=== PATIENT | female | born 1955 | race African-American/Black ===

== ENCOUNTER 2018-07-19 09:58 | Observation (INO) ==
[~2018-07-19 09:58] MED LIST: ACETAMINOPHEN 325 MG TABLET PO PRN; BISACODYL 5 MG TABLET PO PRN; DOCUSATE SODIUM 100 MG CAPSULE PO PRN; MAGNESIUM SULF RIDER 2 GM in PREMIX 1 EACH IV PRN; MAGNESIUM SULF RIDER 4 GM in PREMIX 1 EACH IV PRN; ONDANSETRON 4 MG/2 ML VIAL IV PRN; POTASSIUM CHLORIDE 20 MEQ TABLET PO PRN; ZALEPLON 5 MG CAPSULE PO PRN; diphenhydrAMINE CAP 25 MG CAPSULE PO PRN; guaiFENesin/DM ER 600-30 MG TABLET PO PRN
[2018-07-19 11:27] LABS: Basophils % 0.7 % (0.0-0.8); Eosinophils # 0.2 10*3/uL (0.0-0.87); Eosinophils % 4.4 % (0.00-10.9); Hematocrit 32.1 VOL% (35.7-47.0); Hemoglobin 10.1 GM/DL (12.0-16.0); Immature Granulocytes % 0.9 %; Immature Granulocytes Absolute 0.04 #; Lymphocytes # 1.2 10*3/uL (1.4-4.0); Lymphocytes % 27.7 % (21.3-54.2); Mean Corpuscular HGB Conc 31.5 GM/DL (32-36); Mean Corpuscular Hemoglobin 29 PG (27-34); Mean Corpuscular Volume 93.3 FL (87-102); Mean Platelet Volume 9.7 FL (9.6-12.0); Monocytes # 0.5 10*3/uL (0.11-0.8); Monocytes % 11.6 % (1.7-12.7); Neutrophils # 2.4 10*3/uL (1.4-7.4); Neutrophils % 54.7 % (38.7-73.9); Platelet Count 234 T/CUMM (130-400); Red Blood Count 3.44 MC/CUMM (3.8-5.5); Red Cell Distribution Width 14.5 % (9.3-17.3); White Blood Count 4.3 T/CUMM (4-12)
[2018-07-19] MEDS ORDERED: TOBRAMYCIN/DEXAMETHASONE OPH OINT 3.5 GM TUBE BOTH EYES PRN (11:36)
[2018-07-19] MEDS ORDERED: NON-FORMULARY MEDICATION (Chlorpheniramine/Phenylephrine [Ed-A-Hist 4 Mg-10 Mg Tablet] 1 E PO PRN (11:36)
[2018-07-19 11:38] LABS: INR 1.1; PT Patient Result 11.6 SECS
[2018-07-19] MEDS ORDERED: ENOXAPARIN 40 MG/0.4 ML SYRINGE SUBCUT SCH (12:00)
[2018-07-19 12:01] LABS: Albumin 3.6 G/DL (3.4-5.0); Bilirubin,Total 0.4 MG/DL (0.2-1.0); Calcium 8.7 MG/DL (8.5-10.1); Osmolality,Calculated 289.4 MOS/KG (273-304); Potassium 3.7 MMOL/L (3.5-5.1); Total Protein 7.6 G/DL (6.4-8.3)
[2018-07-19] MEDS: DEXTROSE 5% NACL 0.45% 1,000 ML IV SCH (14:44)
[2018-07-19] MEDS: PANTOPRAZOLE 40 MG TABLET PO SCH (14:45)
[2018-07-19] MEDS: FUROSEMIDE 20 MG TABLET PO SCH (16:39)
[2018-07-19] MEDS ORDERED: methylPREDNISolone 4 MG TABLET PO ONE (18:00)
[2018-07-20] MEDS: DEXTROSE 5% NACL 0.45% 1,000 ML IV SCH ×2 (01:01→04:45)
[2018-07-20 04:55] LABS: Eosinophils % 0.6 % (0.00-10.9); Lymphocytes # 0.6 10*3/uL (1.4-4.0)
[2018-07-20 05:08] LABS: Basophils % 0.6 % (0.0-0.8); Hematocrit 28.3 VOL% (35.7-47.0); Hemoglobin 9.5 GM/DL (12.0-16.0); Immature Granulocytes % 1.6 %; Immature Granulocytes Absolute 0.05 #; Lymphocytes % 19.8 % (21.3-54.2); Mean Corpuscular HGB Conc 33.6 GM/DL (32-36); Mean Corpuscular Hemoglobin 30 PG (27-34); Mean Corpuscular Volume 90.1 FL (87-102); Mean Platelet Volume 10.6 FL (9.6-12.0); Monocytes # 0.1 10*3/uL (0.11-0.8); Monocytes % 3.8 % (1.7-12.7); Neutrophils # 2.3 10*3/uL (1.4-7.4); Neutrophils % 73.6 % (38.7-73.9); Platelet Count 189 T/CUMM (130-400); Red Blood Count 3.14 MC/CUMM (3.8-5.5); Red Cell Distribution Width 14.1 % (9.3-17.3); White Blood Count 3.1 T/CUMM (4-12)
[2018-07-20 05:41] LABS: Calcium 8.3 MG/DL (8.5-10.1); Osmolality,Calculated 289.5 MOS/KG (273-304); Potassium 4.3 MMOL/L (3.5-5.1)
[2018-07-20] MEDS: LEVOTHYROXINE 25 MCG TABLET PO SCH (06:52)
[2018-07-20] MEDS ORDERED: diphenhydrAMINE CAP 25 MG CAPSULE PO ONE (08:00)
[2018-07-20] MEDS ORDERED: methylPREDNISolone 4 MG TABLET PO SCH ×2 (08:00→10:00)
[2018-07-20] MEDS ORDERED: DIAZEPAM 5 MG TABLET PO ONE (08:00)
[2018-07-20] MEDS ORDERED: LISINOPRIL 10 MG TABLET PO SCH (09:00)
[2018-07-20] MEDS: MEGESTROL 40 MG TABLET PO SCH (09:40)
[2018-07-20] MEDS: FUROSEMIDE 20 MG TABLET PO SCH ×2 (09:40→19:00)
[2018-07-20] MEDS: ASPIRIN EC 81 MG TABLET PO SCH (09:41)
[2018-07-20] MEDS: PANTOPRAZOLE 40 MG TABLET PO SCH (09:41)
[2018-07-20] MEDS: CHOLECALCIFEROL 1,000 UNIT TABLET PO SCH (09:41)
[2018-07-20] MEDS: FENOFIBRATE 160 MG TABLET PO SCH (09:41)
[2018-07-20] MEDS: CETIRIZINE 10 MG TABLET PO SCH (09:41)
[2018-07-20] MEDS: FERROUS SULFATE 325 MG TABLET PO SCH (09:41)
[2018-07-20] MEDS: CARVEDILOL 3.125 MG TABLET PO SCH (09:41)
[2018-07-20] MEDS ORDERED: methylPREDNISolone SOD SUC 125 MG/2 ML VIAL IV ONE (12:57)
[2018-07-20] MEDS ORDERED: HEPARIN/NACL 0.9% 2 UNITS/ML 1,000 ML IV ONE (13:14)
[2018-07-20] MEDS: DIGOXIN 0.125 MG TABLET PO SCH (13:17)
[2018-07-20] MEDS: ENOXAPARIN 30 MG/0.3 ML SYRINGE SUBCUT SCH (13:28)
[2018-07-20] MEDS ORDERED: LIDOCAINE 1%/EPI INJ 20 ML VIAL ONE (14:05)
[2018-07-20] MEDS ORDERED: PROPOFOL 200 MG/20 ML VIAL IV ONE (15:09)
[2018-07-20] MEDS ORDERED: MIDAZOLAM 2 MG/2 ML VIAL ONE (15:10)
[2018-07-20] MEDS ORDERED: fentaNYL 100 MCG/2 ML VIAL ONE (15:10)
[2018-07-20] MEDS: SODIUM CHLORIDE 0.45% 1,000 ML IV SCH (19:00)
[2018-07-21] MEDS: DEXTROSE 5% NACL 0.45% 1,000 ML IV SCH ×3 (00:39→16:12)
[2018-07-21] MEDS: SODIUM CHLORIDE 0.45% 1,000 ML IV SCH ×3 (01:41→21:31)
[2018-07-21 05:00] LABS: Basophils % 0.1 % (0.0-0.8); Hemoglobin 8.3 GM/DL (12.0-16.0); Immature Granulocytes % 0.7 %; Immature Granulocytes Absolute 0.07 #; Lymphocytes # 1.6 10*3/uL (1.4-4.0); Lymphocytes % 15.2 % (21.3-54.2); Mean Corpuscular HGB Conc 31.9 GM/DL (32-36); Mean Corpuscular Hemoglobin 29 PG (27-34); Mean Corpuscular Volume 90.6 FL (87-102); Mean Platelet Volume 11.5 FL (9.6-12.0); Monocytes % 9.7 % (1.7-12.7); Neutrophils # 7.9 10*3/uL (1.4-7.4); Neutrophils % 74.3 % (38.7-73.9); Platelet Count 157 T/CUMM (130-400); Red Blood Count 2.87 MC/CUMM (3.8-5.5); Red Cell Distribution Width 14.1 % (9.3-17.3); White Blood Count 10.7 T/CUMM (4-12)
[2018-07-21 05:37] LABS: Calcium 8.3 MG/DL (8.5-10.1); Osmolality,Calculated 289.3 MOS/KG (273-304); Potassium 3.9 MMOL/L (3.5-5.1)
[2018-07-21 05:52] LABS: Osmolality,Calculated 291.1 MOS/KG (273-304); Potassium 3.9 MMOL/L (3.5-5.1)
[2018-07-21] MEDS: LEVOTHYROXINE 25 MCG TABLET PO SCH (06:51)
[2018-07-21] MEDS: ASPIRIN EC 81 MG TABLET PO SCH (09:10)
[2018-07-21] MEDS: CETIRIZINE 10 MG TABLET PO SCH (09:10)
[2018-07-21] MEDS: FUROSEMIDE 20 MG TABLET PO SCH ×2 (09:10→16:12)
[2018-07-21] MEDS: PANTOPRAZOLE 40 MG TABLET PO SCH (09:10)
[2018-07-21] MEDS: CARVEDILOL 3.125 MG TABLET PO SCH (09:10)
[2018-07-21] MEDS: CHOLECALCIFEROL 1,000 UNIT TABLET PO SCH (09:10)
[2018-07-21] MEDS: FERROUS SULFATE 325 MG TABLET PO SCH (09:10)
[2018-07-21] MEDS: MEGESTROL 40 MG TABLET PO SCH (09:10)
[2018-07-21] MEDS: FENOFIBRATE 160 MG TABLET PO SCH (09:10)
[2018-07-21 12:03] LABS: Apearance,Urine CLEAR (Clear); Bacteria,Urine Moderate /HPF (Few); Bilirubin,Urine Negative (Negative); Blood, Urine Small mg/dL (Negative); Glucose,Urine (UA) Negative (Negative); Ketones,Urine Negative (Negative); Nitrite,Urine Negative (Negative); Protein,Urine Negative; RBC,Urine 4 /HPF (0-4); Squamous Epithelial Cell,Urine Occasional /HPF (0-10); Urine Color Colorless (Yellow); Urine Specific Gravity 1.005 (1.001-1.035); Urine Urobilinogen < 2.0 EU/DL (0.2-1.0); WBC,Urine 1 /HPF (0-6)
[2018-07-21] MEDS: ENOXAPARIN 30 MG/0.3 ML SYRINGE SUBCUT SCH (13:36)
[2018-07-21] MEDS: DIGOXIN 0.125 MG TABLET PO SCH (13:36)
[2018-07-22 02:35] LABS: Basophils % 0.5 % (0.0-0.8); Eosinophils # 0.1 10*3/uL (0.0-0.87); Eosinophils % 1.1 % (0.00-10.9); Hematocrit 27.2 VOL% (35.7-47.0); Immature Granulocytes % 1.1 %; Immature Granulocytes Absolute 0.08 #; Lymphocytes # 2.7 10*3/uL (1.4-4.0); Lymphocytes % 36.2 % (21.3-54.2); Mean Corpuscular HGB Conc 33.1 GM/DL (32-36); Mean Corpuscular Hemoglobin 30 PG (27-34); Mean Corpuscular Volume 89.8 FL (87-102); Mean Platelet Volume 9.7 FL (9.6-12.0); Monocytes # 0.8 10*3/uL (0.11-0.8); Monocytes % 10.4 % (1.7-12.7); Neutrophils # 3.8 10*3/uL (1.4-7.4); Neutrophils % 50.7 % (38.7-73.9); Platelet Count 235 T/CUMM (130-400); Red Blood Count 3.03 MC/CUMM (3.8-5.5); Red Cell Distribution Width 14.1 % (9.3-17.3); White Blood Count 7.6 T/CUMM (4-12)
[2018-07-22 03:16] LABS: Calcium 8.1 MG/DL (8.5-10.1); Osmolality,Calculated 285.3 MOS/KG (273-304); Potassium 3.6 MMOL/L (3.5-5.1)
[2018-07-22] MEDS: DEXTROSE 5% NACL 0.45% 1,000 ML IV SCH (05:57)
[2018-07-22] MEDS: LEVOTHYROXINE 25 MCG TABLET PO SCH ×2 (05:57→06:59)
[2018-07-22] MEDS: SODIUM CHLORIDE 0.45% 1,000 ML IV SCH (06:59)
[2018-07-22 08:24] VITALS: BP 121/58
[2018-07-22] MEDS: CETIRIZINE 10 MG TABLET PO SCH (10:21)
[2018-07-22] MEDS: FENOFIBRATE 160 MG TABLET PO SCH (10:21)
[2018-07-22] MEDS: FERROUS SULFATE 325 MG TABLET PO SCH (10:22)
[2018-07-22] MEDS: PANTOPRAZOLE 40 MG TABLET PO SCH (10:22)
[2018-07-22] MEDS: CHOLECALCIFEROL 1,000 UNIT TABLET PO SCH (10:22)
[2018-07-22] MEDS: CARVEDILOL 3.125 MG TABLET PO SCH (10:22)
[2018-07-22] MEDS: ASPIRIN EC 81 MG TABLET PO SCH (10:22)
[2018-07-22] MEDS: FUROSEMIDE 20 MG TABLET PO SCH (10:22)
[2018-07-22] MEDS: MEGESTROL 40 MG TABLET PO SCH (10:28)
== END 2018-07-22 12:04 | disposition home or self-care (01) ==
LOC: N.2W → N.TELES 12:55 → EDSTATUS 07-20 13:30
PROVIDERS: ADMIT Internal Medicine Interventional Cardiology; ATTEND Internal Medicine Cardiovascular Disease

== ENCOUNTER 2018-08-15 07:30 | Inpatient (IN) ==
[2018-08-22] MEDS ORDERED: CHLORPHENIRAMINE PO PRN (14:26)
[2018-08-22] MEDS ORDERED: PHENYLEPHRINE PO PRN (14:26)
[2018-08-22] MEDS ORDERED: tiZANidine 4 MG TABLET PO PRN (14:26)
[2018-08-22] MEDS ORDERED: PROMETHAZINE 25 MG TABLET PO PRN (14:26)
[2018-08-22] MEDS ORDERED: traMADol 50 MG TABLET PO PRN (14:26)
[2018-08-22] MEDS ORDERED: TOBRAMYCIN/DEXAMETHASONE OPH OINT 3.5 GM TUBE BOTH EYES PRN (14:26)
[2018-08-22] MEDS ORDERED: clonazePAM 0.5 MG TABLET PO PRN (14:26)
[2018-08-22] MEDS ORDERED: GLUCAGON 1 MG VIAL IM PRN (14:29)
[2018-08-22] MEDS ORDERED: DEXTROSE 50% 25 GM/50 ML SYRINGE IV PRN (14:29)
[2018-08-23] MEDS: POTASSIUM CHLORIDE 20 MEQ TABLET PO SCH ×2 (13:53→13:54)
[2018-08-23] MEDS: CHLORHEXIDINE 0.12% ORAL RINSE 60 ML BOTTLE SWISH/SPIT SCH ×2 (13:54→21:27)
[2018-08-23] MEDS: FUROSEMIDE 20 MG TABLET PO SCH (13:54)
[2018-08-23] MEDS: PANTOPRAZOLE 40 MG TABLET PO SCH ×3 (13:54→21:27)
[2018-08-23] MEDS: ASPIRIN EC 81 MG TABLET PO SCH (13:55)
[2018-08-23] MEDS: CARVEDILOL 3.125 MG TABLET PO SCH (13:55)
[2018-08-23] MEDS: LEVOTHYROXINE 25 MCG TABLET PO SCH (13:56)
[2018-08-23] MEDS: FERROUS SULFATE 325 MG TABLET PO SCH (13:56)
[2018-08-23] MEDS: ALLOPURINOL 100 MG TABLET PO SCH (13:56)
[2018-08-23] MEDS: MEGESTROL 40 MG TABLET PO SCH (13:56)
[2018-08-23] MEDS: FENOFIBRATE 160 MG TABLET PO SCH (13:56)
[2018-08-23] MEDS: DIGOXIN 0.125 MG TABLET PO SCH (13:56)
[2018-08-23] MEDS: CETIRIZINE 10 MG TABLET PO SCH (13:56)
[2018-08-23] MEDS: ESTROGENS (CONJ) VAG CREAM 30 GM TUBE VAG SCH ×2 (13:57→14:00)
[2018-08-23] MEDS: CHOLECALCIFEROL 1,000 UNIT TABLET PO SCH (13:57)
[2018-08-23] MEDS: SODIUM CHLORIDE 0.9% 1,000 ML IV SCH ×2 (13:57→14:00)
[2018-08-23 14:50] LABS: Basophils % 0.4 % (0.0-0.8); Eosinophils # 0.1 10*3/uL (0.0-0.87); Eosinophils % 1.9 % (0.00-10.9); Hematocrit 26.6 VOL% (35.7-47.0); Hemoglobin 8.4 GM/DL (12.0-16.0); Immature Granulocytes % 0.7 %; Immature Granulocytes Absolute 0.04 #; Lymphocytes # 1.4 10*3/uL (1.4-4.0); Lymphocytes % 24.2 % (21.3-54.2); Mean Corpuscular HGB Conc 31.6 GM/DL (32-36); Mean Corpuscular Hemoglobin 29 PG (27-34); Mean Corpuscular Volume 90.8 FL (87-102); Mean Platelet Volume 12.6 FL (9.6-12.0); Monocytes # 0.5 10*3/uL (0.11-0.8); Monocytes % 9.5 % (1.7-12.7); Neutrophils # 3.6 10*3/uL (1.4-7.4); Neutrophils % 63.3 % (38.7-73.9); Platelet Count 104 T/CUMM (130-400); Red Blood Count 2.93 MC/CUMM (3.8-5.5); Red Cell Distribution Width 14.9 % (9.3-17.3); White Blood Count 5.7 T/CUMM (4-12)
[2018-08-23 15:07] LABS: Albumin 3.3 G/DL (3.4-5.0); Bilirubin,Total 0.4 MG/DL (0.2-1.0); Calcium 8.3 MG/DL (8.5-10.1); Osmolality,Calculated 292.8 MOS/KG (273-304); Potassium 3.4 MMOL/L (3.5-5.1); Total Protein 6.7 G/DL (6.4-8.3)
[2018-08-23] MEDS ORDERED: POTASSIUM CHLORIDE 20 MEQ TABLET PO ONE (16:08)
[2018-08-23] MEDS: CHLORHEXIDINE 4% SOLN 118 ML BOTTLE TOP SCH ×4 (16:46→22:10)
[2018-08-24] MEDS ORDERED: VANCOMYCIN 1,000 MG VIAL ONE (04:45)
[2018-08-24] MEDS: PANTOPRAZOLE 40 MG TABLET PO SCH (05:45)
[2018-08-24] MEDS: CARVEDILOL 3.125 MG TABLET PO SCH (05:45)
[2018-08-24] MEDS ORDERED: SUFentanil 250 MCG/5 ML AMP ONE (05:58)
[2018-08-24] MEDS ORDERED: MIDAZOLAM 10 MG/2 ML VIAL ONE (05:58)
[2018-08-24] MEDS ORDERED: DIAZEPAM 5 MG TABLET PO ONE (06:00)
[2018-08-24] MEDS ORDERED: CEFUROXIME INJ 1,500 MG in SYRINGE 1 EACH IV ONE (06:00)
[2018-08-24] MEDS ORDERED: DIAZEPAM 5 MG TABLET PO SCH (06:00)
[2018-08-24] MEDS ORDERED: PHENYLEPHRINE DRIP 40 MG/250 ML PREMIX IV ONE (07:29)
[2018-08-24] MEDS ORDERED: POTASSIUM CHLORIDE RIDER 100 ML IV ONE (07:30)
[2018-08-24] MEDS ORDERED: CALCIUM CHLORIDE 1,000 MG/10 ML SYRINGE IV ONE (07:30)
[2018-08-24 07:55] LABS: ABG Base Excess -2.5 MMOL/L (-2.5-2.5); ABG HCO3 22.3 MMOL/L (20-26); ABG PCO2 37.3 MM HG (35-48); ABG PH 7.382 (7.35-7.45); ABG TCO2 20.8 MMOL/L (23-27); Glucose Heart Surgery 88 MG/DL (74-106); Hematocrit Heart Surgery 23.9 PERCENT (37-47); Hemoglobin Heart Surgery 7.7 G/DL (12.0-16.0); Ionized Calcium Arterial 1.12 MMOL/L (1.21-1.46); PCO2 Patient Temp Arterial 37.3 MMHG; PH Patient Temp Arterial 7.382; Patient Temperature 37 CELCIUS; Potassium Heart/CVR 3.5 MMOL/L (3.5-5.1); Sodium Heart/CVR 141 MMOL/L (135-145)
[2018-08-24 08:22] LABS: Apearance,Urine CLEAR (Clear); Bilirubin,Urine Negative (Negative); Blood, Urine Moderate mg/dL (Negative); Glucose,Urine (UA) Negative (Negative); Ketones,Urine Negative (Negative); Nitrite,Urine Negative (Negative); Protein,Urine Negative; RBC,Urine 80 /HPF (0-4); Urine Color Yellow (Yellow); Urine Specific Gravity 1.013 (1.001-1.035); Urine Urobilinogen < 2.0 EU/DL (0.2-1.0); WBC,Urine 4 /HPF (0-6)
[2018-08-24] MEDS: LEVOTHYROXINE 25 MCG TABLET PO SCH (08:29)
[2018-08-24 08:47] LABS: Hemoglobin Heart Surgery 7.6 G/DL (12.0-16.0); PCO2 Patient Temp Venous 29.1 MM HG; PH Patient Temp Venous 7.448; PO2 Patient Temp Venous 44.8 MM HG; Potassium Heart/CVR 4.7 MMOL/L (3.5-5.1); VBG Base Excess -3.9 MEQ/L (0-4); VBG HCO3 20.1 MEQ/L (24-28); VBG Oxygen Saturation 83.9 %; VBG PCO2 31.8 MMHG (41-51); VBG PH 7.418; VBG PO2 51.5 MMHG (17-40)
[2018-08-24] MEDS ORDERED: POTASSIUM CHLORIDE 20 MEQ TABLET PO SCH (09:00)
[2018-08-24] MEDS: ASPIRIN EC 81 MG TABLET PO SCH (09:14)
[2018-08-24] MEDS: FERROUS SULFATE 325 MG TABLET PO SCH (09:14)
[2018-08-24] MEDS: CHLORHEXIDINE 4% SOLN 118 ML BOTTLE TOP SCH (09:14)
[2018-08-24] MEDS: MEGESTROL 40 MG TABLET PO SCH (09:15)
[2018-08-24] MEDS: DIGOXIN 0.125 MG TABLET PO SCH (09:15)
[2018-08-24] MEDS: CHLORHEXIDINE 0.12% ORAL RINSE 60 ML BOTTLE SWISH/SPIT SCH (09:15)
[2018-08-24] MEDS: FENOFIBRATE 160 MG TABLET PO SCH (09:15)
[2018-08-24] MEDS: CHOLECALCIFEROL 1,000 UNIT TABLET PO SCH (09:15)
[2018-08-24] MEDS: ALLOPURINOL 100 MG TABLET PO SCH (09:16)
[2018-08-24] MEDS: CETIRIZINE 10 MG TABLET PO SCH (09:16)
[2018-08-24 09:20] LABS: Hematocrit Heart Surgery 25.9 PERCENT (37-47); Hemoglobin Heart Surgery 8.3 G/DL (12.0-16.0); PCO2 Patient Temp Venous 29.2 MM HG; PH Patient Temp Venous 7.513; PO2 Patient Temp Venous 39.2 MM HG; Potassium Heart/CVR 4.5 MMOL/L (3.5-5.1); VBG HCO3 25.1 MEQ/L (24-28); VBG Oxygen Saturation 83.4 %; VBG PCO2 32.1 MMHG (41-51); VBG PH 7.483
[2018-08-24] MEDS ORDERED: MAGNESIUM SULFATE 10 GM/20 ML VIAL IV ONE (10:01)
[2018-08-24] MEDS ORDERED: DEXTROSE 5% KCL 20 MEQ 20 MEQ/1,000 ML BAG IV ONE (10:01)
[2018-08-24] MEDS ORDERED: PROTAMINE SULFATE 250 MG/25 ML VIAL IV ONE (10:01)
[2018-08-24] MEDS ORDERED: MANNITOL 12.5 GM/50 ML VIAL IV ONE (10:01)
[2018-08-24] MEDS ORDERED: HEPARIN 10,000 UNIT/10 ML VIAL ONE (10:01)
[2018-08-24] MEDS ORDERED: FUROSEMIDE 20 MG/2 ML VIAL ONE (10:01)
[2018-08-24] MEDS ORDERED: methylPREDNISolone SOD SUC 1,000 MG/8 ML VIAL ONE (10:01)
[2018-08-24] MEDS ORDERED: ALBUMIN 25% 25 GM/100 ML VIAL IV ONE (10:01)
[2018-08-24] MEDS ORDERED: PHENYLEPHRINE 1 MG/10 ML SYRINGE IV ONE ×2 (10:01→11:05)
[2018-08-24] MEDS ORDERED: SODIUM BICARBONATE 50 MEQ/50 ML SYRINGE IV ONE (10:01)
[2018-08-24 10:16] LABS: ABG Base Excess -4.6 MMOL/L (-2.5-2.5); ABG HCO3 20.6 MMOL/L (20-26); ABG PCO2 34.6 MM HG (35-48); ABG PH 7.372 (7.35-7.45); ABG TCO2 18.8 MMOL/L (23-27); Glucose Heart Surgery 204 MG/DL (74-106); Hematocrit Heart Surgery 24.6 PERCENT (37-47); Hemoglobin Heart Surgery 7.9 G/DL (12.0-16.0); Ionized Calcium Arterial 1.28 MMOL/L (1.21-1.46); PCO2 Patient Temp Arterial 34.6 MMHG; PH Patient Temp Arterial 7.372; Patient Temperature 37 CELCIUS; Potassium Heart/CVR 3.9 MMOL/L (3.5-5.1); Sodium Heart/CVR 137 MMOL/L (135-145)
[2018-08-24] MEDS ORDERED: ETOMIDATE 40 MG/20 ML VIAL IV ONE (11:04)
[2018-08-24] MEDS ORDERED: PHENYLEPHRINE 10 MG/1 ML VIAL IV ONE (11:04)
[2018-08-24] MEDS ORDERED: ESMOLOL 100 MG/10 ML VIAL IV ONE (11:04)
[2018-08-24] MEDS ORDERED: VECURONIUM 10 MG VIAL IV ONE (11:04)
[2018-08-24] MEDS ORDERED: CALCIUM CHLORIDE 1,000 MG/10 ML VIAL IV ONE (11:04)
[2018-08-24] MEDS ORDERED: SEVOFLURANE 1 UNIT/15 MINUTE INH ONE (11:04)
[2018-08-24] MEDS ORDERED: SODIUM CHLORIDE 0.9% 500 ML IV ONE (11:05)
[2018-08-24] MEDS ORDERED: LACTATED RINGERS 3,000 ML IV ONE (11:05)
[2018-08-24] MEDS ORDERED: SODIUM CHLORIDE 0.9% 1,000 ML IV ONE (11:05)
[2018-08-24] MEDS ORDERED: MIDAZOLAM 2 MG/2 ML VIAL IV PRN (11:09)
[2018-08-24] MEDS ORDERED: DEXTROSE 50% 25 GM/50 ML SYRINGE IV PRN ×2 (11:09)
[2018-08-24] MEDS ORDERED: CALCIUM CHLORIDE 1,000 MG/10 ML SYRINGE IV PRN (11:09)
[2018-08-24] MEDS ORDERED: KETOROLAC 30 MG/1 ML VIAL IV SCH (11:09)
[2018-08-24] MEDS ORDERED: POTASSIUM CHLORIDE RIDER 10 MEQ in PREMIX 1 EACH IV PRN (11:09)
[2018-08-24] MEDS ORDERED: ONDANSETRON 4 MG/2 ML VIAL IV PRN (11:09)
[2018-08-24] MEDS ORDERED: ACETAMINOPHEN 650 MG SUPP RECTAL PRN (11:09)
[2018-08-24] MEDS ORDERED: LACTATED RINGERS 250 ML IV PRN (11:09)
[2018-08-24] MEDS ORDERED: MIDAZOLAM 10 MG/2 ML VIAL IV PRN (11:09)
[2018-08-24] MEDS ORDERED: INSULIN REGULAR 100 UNIT/ML IV ONE (11:09)
[2018-08-24] MEDS ORDERED: MORPHINE 4 MG/1 ML VIAL IV PRN (11:09)
[2018-08-24] MEDS ORDERED: NITROPRUSSIDE 100 MG in DEXTROSE 5% 250 ML IV PRN (11:09)
[2018-08-24] MEDS ORDERED: MAGNESIUM SULF RIDER 2 GM in PREMIX 1 EACH IV PRN (11:09)
[2018-08-24] MEDS ORDERED: INSULIN REGULAR DRIP 100 ML IV SCH (11:09)
[2018-08-24] MEDS ORDERED: INSULIN REGULAR 100 UNIT/ML IV PRN (11:09)
[2018-08-24] MEDS ORDERED: SODIUM CHLORIDE 0.45% 1,000 ML IV SCH ×2 (11:09)
[2018-08-24] MEDS ORDERED: PHENYLEPHRINE DRIP 40 MG/250 ML PREMIX IV PRN (11:09)
[2018-08-24] MEDS ORDERED: VECURONIUM 10 MG VIAL IV PRN ×2 (11:09)
[2018-08-24] MEDS ORDERED: MAGNESIUM SULF RIDER 4 GM in PREMIX 1 EACH IV PRN (11:09)
[2018-08-24] MEDS ORDERED: AMINOCAPROIC ACID 5,000 MG/20 ML VIAL IV ONE (11:10)
[2018-08-24] MEDS ORDERED: PROTAMINE SULFATE 50 MG/5 ML VIAL IV ONE (11:11)
[2018-08-24] MEDS ORDERED: NITROPRUSSIDE 50 MG/2 ML VIAL ONE (11:15)
[2018-08-24 11:16] LABS: ABG Base Excess -5.1 MMOL/L (-2.5-2.5); ABG HCO3 20.2 MMOL/L (20-26); ABG Oxygen Saturation 96.9 % (95-100); ABG PCO2 33.3 MM HG (35-48); ABG PH 7.374 (7.35-7.45); Glucose Heart Surgery 168 MG/DL (74-106); Hematocrit Heart Surgery 27.8 PERCENT (37-47); Potassium Heart/CVR 3.8 MMOL/L (3.5-5.1)
[2018-08-24 11:21] LABS: Basophils % 0.2 % (0.0-0.8); Eosinophils % 0.4 % (0.00-10.9); Hematocrit 27.7 VOL% (35.7-47.0); Hemoglobin 8.7 GM/DL (12.0-16.0); Immature Granulocytes % 1.3 %; Immature Granulocytes Absolute 0.12 #; Lymphocytes # 0.7 10*3/uL (1.4-4.0); Lymphocytes % 7.4 % (21.3-54.2); Mean Corpuscular HGB Conc 31.4 GM/DL (32-36); Mean Corpuscular Hemoglobin 29 PG (27-34); Mean Corpuscular Volume 90.8 FL (87-102); Mean Platelet Volume 10.5 FL (9.6-12.0); Monocytes # 0.6 10*3/uL (0.11-0.8); Monocytes % 5.8 % (1.7-12.7); Neutrophils # 8.1 10*3/uL (1.4-7.4); Neutrophils % 84.9 % (38.7-73.9); Platelet Count 107 T/CUMM (130-400); Red Blood Count 3.05 MC/CUMM (3.8-5.5); Red Cell Distribution Width 15.5 % (9.3-17.3); White Blood Count 9.6 T/CUMM (4-12)
[2018-08-24] MEDS ORDERED: NITROGLYCERIN DRIP 50 MG/250 ML BOTTLE IV ONE (11:22)
[2018-08-24] MEDS ORDERED: NITROGLYCERIN DRIP 50 MG/250 ML BOTTLE IV PRN (11:23)
[2018-08-24 11:32] LABS: INR 1.3; PT Patient Result 13.9 SECS
[2018-08-24] MEDS ORDERED: FUROSEMIDE 40 MG/4 ML VIAL IV ONE (11:32)
[2018-08-24] MEDS ORDERED: FUROSEMIDE 40 MG/4 ML VIAL ONE (11:36)
[2018-08-24 11:45] LABS: Albumin 2.5 G/DL (3.4-5.0); Bilirubin,Total 1.1 MG/DL (0.2-1.0); Calcium 7.6 MG/DL (8.5-10.1); Osmolality,Calculated 293.8 MOS/KG (273-304); Potassium 3.9 MMOL/L (3.5-5.1); Total Protein 4.9 G/DL (6.4-8.3)
[2018-08-24 12:13] LABS: CKMB % 4.5 %
[2018-08-24 12:17] LABS: Troponin I 11.9 NG/ML (0.00-0.045)
[2018-08-24] MEDS: POTASSIUM CHLORIDE RIDER 20 MEQ in PREMIX 1 EACH IV PRN ×3 (13:00→21:23)
[2018-08-24 13:37] LABS: ABG HCO3 17.6 MMOL/L (20-26); ABG Oxygen Saturation 98.8 % (95-100); ABG PCO2 29.1 MM HG (35-48); ABG PH 7.399 (7.35-7.45); ABG PO2 208.4 MM HG (80-95); ABG TCO2 18.5 MMOL/L (23-27); Glucose Heart Surgery 213 MG/DL (74-106); Potassium Heart/CVR 4.6 MMOL/L (3.5-5.1)
[2018-08-24] MEDS: ALBUMIN 5% 12.5 GM in PREMIX 1 EACH IV PRN ×2 (14:48→16:30)
[2018-08-24] MEDS: MORPHINE 10 MG/1 ML VIAL IV PRN ×3 (16:24→21:43)
[2018-08-24 17:55] LABS: ABG Base Excess -5.3 MMOL/L (-2.5-2.5); ABG HCO3 17.4 MMOL/L (20-26); ABG Oxygen Saturation 98.7 % (95-100); ABG PCO2 25.7 MM HG (35-48); ABG PH 7.449 (7.35-7.45); ABG PO2 200.4 MM HG (80-95); ABG TCO2 18.2 MMOL/L (23-27); Glucose Heart Surgery 154 MG/DL (74-106); Hemoglobin Heart Surgery 11.1 G/DL (12.0-16.0); Potassium Heart/CVR 3.7 MMOL/L (3.5-5.1)
[2018-08-24] MEDS: CEFUROXIME INJ 1,500 MG in SYRINGE 1 EACH IV SCH (19:04)
[2018-08-24] MEDS ORDERED: CHLORHEXIDINE 0.12% ORAL RINSE 60 ML BOTTLE SWISH/SPIT SCH (21:00)
[2018-08-24 21:14] LABS: ABG Base Excess -5.4 MMOL/L (-2.5-2.5); ABG Oxygen Saturation 99.5 % (95-100); ABG PCO2 31.6 MM HG (35-48); ABG PH 7.382 (7.35-7.45); ABG TCO2 16.9 MMOL/L (23-27); Glucose Heart Surgery 143 MG/DL (74-106); Potassium Heart/CVR 4.1 MMOL/L (3.5-5.1)
[2018-08-24 21:49] LABS: CKMB % 3.6 %
[2018-08-24 21:55] LABS: Troponin I 14.9 NG/ML (0.00-0.045)
[2018-08-24 23:17] LABS: ABG Base Excess -6.1 MMOL/L (-2.5-2.5); ABG HCO3 19.5 MMOL/L (20-26); ABG Oxygen Saturation 99.5 % (95-100); ABG PCO2 32.7 MM HG (35-48); ABG TCO2 16.6 MMOL/L (23-27); Glucose Heart Surgery 137 MG/DL (74-106); Hematocrit Heart Surgery 34.7 PERCENT (37-47); Hemoglobin Heart Surgery 11.2 G/DL (12.0-16.0); Potassium Heart/CVR 4.8 MMOL/L (3.5-5.1)
[2018-08-24 23:48] LABS: ABG Base Excess -6.4 MMOL/L (-2.5-2.5); ABG HCO3 19.3 MMOL/L (20-26); ABG Oxygen Saturation 99.4 % (95-100); ABG PCO2 34.5 MM HG (35-48); ABG PH 7.341 (7.35-7.45); ABG TCO2 16.8 MMOL/L (23-27); Glucose Heart Surgery 136 MG/DL (74-106); Hematocrit Heart Surgery 34.8 PERCENT (37-47); Hemoglobin Heart Surgery 11.3 G/DL (12.0-16.0); Potassium Heart/CVR 4.8 MMOL/L (3.5-5.1)
[2018-08-25] MEDS ORDERED: FUROSEMIDE 40 MG/4 ML VIAL IV ONE (00:30)
[2018-08-25 01:16] LABS: ABG Base Excess -6.1 MMOL/L (-2.5-2.5); ABG HCO3 19.5 MMOL/L (20-26); ABG PCO2 35.4 MM HG (35-48); ABG PH 7.339 (7.35-7.45); ABG TCO2 17.1 MMOL/L (23-27); Glucose Heart Surgery 135 MG/DL (74-106); Hematocrit Heart Surgery 35.5 PERCENT (37-47); Hemoglobin Heart Surgery 11.5 G/DL (12.0-16.0); Potassium Heart/CVR 4.6 MMOL/L (3.5-5.1)
[2018-08-25] MEDS: MORPHINE 10 MG/1 ML VIAL IV PRN ×2 (02:45→05:42)
[2018-08-25 03:47] LABS: ABG Base Excess -5.7 MMOL/L (-2.5-2.5); ABG HCO3 19.6 MMOL/L (20-26); ABG Oxygen Saturation 98.7 % (95-100); ABG PCO2 37.5 MM HG (35-48); ABG PH 7.335 (7.35-7.45); ABG PO2 172.3 MM HG (80-95); ABG TCO2 20.7 MMOL/L (23-27); Glucose Heart Surgery 115 MG/DL (74-106); Hemoglobin Heart Surgery 11.7 G/DL (12.0-16.0); Potassium Heart/CVR 4.3 MMOL/L (3.5-5.1)
[2018-08-25] MEDS: POTASSIUM CHLORIDE RIDER 20 MEQ in PREMIX 1 EACH IV PRN (04:05)
[2018-08-25 04:06] LABS: Basophils % 0.1 % (0.0-0.8); Hematocrit 34.3 VOL% (35.7-47.0); Hemoglobin 10.7 GM/DL (12.0-16.0); Immature Granulocytes % 1.3 %; Immature Granulocytes Absolute 0.19 #; Lymphocytes # 0.7 10*3/uL (1.4-4.0); Lymphocytes % 4.5 % (21.3-54.2); Mean Corpuscular HGB Conc 31.2 GM/DL (32-36); Mean Corpuscular Hemoglobin 28 PG (27-34); Mean Corpuscular Volume 89.8 FL (87-102); Mean Platelet Volume 11.1 FL (9.6-12.0); Monocytes # 1.3 10*3/uL (0.11-0.8); Monocytes % 8.8 % (1.7-12.7); Neutrophils # 12.7 10*3/uL (1.4-7.4); Neutrophils % 85.3 % (38.7-73.9); Platelet Count 118 T/CUMM (130-400); Red Blood Count 3.82 MC/CUMM (3.8-5.5); Red Cell Distribution Width 16.1 % (9.3-17.3); White Blood Count 14.8 T/CUMM (4-12)
[2018-08-25 04:14] LABS: Albumin 3.5 G/DL (3.4-5.0); Bilirubin,Direct 0.33 MG/DL (0.0-0.20); Bilirubin,Total 0.7 MG/DL (0.2-1.0); Calcium 7.9 MG/DL (8.5-10.1); Osmolality,Calculated 296.6 MOS/KG (273-304); Potassium 4.4 MMOL/L (3.5-5.1); Total Protein 6.3 G/DL (6.4-8.3)
[2018-08-25 04:23] LABS: CKMB % 3.1 %
[2018-08-25 04:24] LABS: Troponin I 10.3 NG/ML (0.00-0.045)
[2018-08-25 04:57] LABS: Band Neutrophils 1 % (0-10); Lymphocytes 3 % (20-55); Platelet Estimate Decreased; Segmented Neutrophils 89 % (50-85); Total Cells Counted 100
[2018-08-25 04:58] LABS: Hypochromasia 1+; Ovalocytes Slight
[2018-08-25] MEDS: CEFUROXIME INJ 1,500 MG in SYRINGE 1 EACH IV SCH (06:11)
[2018-08-25] MEDS ORDERED: clonazePAM 0.5 MG TABLET PO PRN (06:29)
[2018-08-25] MEDS ORDERED: TOBRAMYCIN/DEXAMETHASONE OPH OINT 3.5 GM TUBE BOTH EYES PRN (06:29)
[2018-08-25] MEDS ORDERED: ONDANSETRON ODT 4 MG TABLET PO PRN (07:30)
[2018-08-25] MEDS ORDERED: MAGNESIUM SULF RIDER 2 GM in PREMIX 1 EACH IV PRN (07:31)
[2018-08-25] MEDS ORDERED: ACETAMINOPHEN 325 MG TABLET PO PRN (07:31)
[2018-08-25] MEDS ORDERED: ALUMINUM/MAGNES/SIMETH MAX STR 30 ML UDCUP PO PRN (07:31)
[2018-08-25] MEDS ORDERED: GLUCAGON 1 MG VIAL IM PRN ×2 (07:31)
[2018-08-25] MEDS ORDERED: POTASSIUM CHLORIDE 20 MEQ TABLET PO PRN (07:31)
[2018-08-25] MEDS ORDERED: DEXTROSE 50% 25 GM/50 ML SYRINGE IV PRN (07:31)
[2018-08-25] MEDS ORDERED: ZALEPLON 5 MG CAPSULE PO PRN (07:31)
[2018-08-25] MEDS ORDERED: MAGNESIUM SULF RIDER 4 GM in PREMIX 1 EACH IV PRN (07:31)
[2018-08-25] MEDS ORDERED: DEXTROSE 50% 25 GM/50 ML VIAL IV PRN (07:31)
[2018-08-25] MEDS: MEGESTROL 40 MG TABLET PO SCH (08:09)
[2018-08-25] MEDS: FENOFIBRATE 160 MG TABLET PO SCH (08:09)
[2018-08-25] MEDS: ALLOPURINOL 100 MG TABLET PO SCH (08:09)
[2018-08-25] MEDS: FUROSEMIDE 20 MG TABLET PO SCH ×2 (08:10→16:00)
[2018-08-25] MEDS: CETIRIZINE 10 MG TABLET PO SCH (08:10)
[2018-08-25] MEDS: DIGOXIN 0.125 MG TABLET PO SCH (08:10)
[2018-08-25] MEDS: CARVEDILOL 3.125 MG TABLET PO SCH (08:11)
[2018-08-25] MEDS: ASPIRIN EC 81 MG TABLET PO SCH (08:11)
[2018-08-25] MEDS: CHOLECALCIFEROL 1,000 UNIT TABLET PO SCH (08:12)
[2018-08-25] MEDS: FERROUS SULFATE 325 MG TABLET PO SCH ×2 (08:12→09:33)
[2018-08-25] MEDS: PANTOPRAZOLE 40 MG TABLET PO SCH (08:13)
[2018-08-25] MEDS: oxyCODONE/ACETAMINOPHEN 5-325 MG TABLET PO PRN ×4 (08:13→23:20)
[2018-08-25] MEDS: ONDANSETRON 4 MG/2 ML VIAL IV PRN (08:39)
[2018-08-25] MEDS: INSULIN REGULAR 100 UNIT/ML SUBCUT SCH ×4 (08:40→23:35)
[2018-08-25] MEDS: SODIUM CHLOR 0.45% KCL 20 MEQ 20 MEQ/1,000 ML BAG IV SCH (09:32)
[2018-08-25] MEDS: DOCUSATE SODIUM 100 MG CAPSULE PO SCH ×2 (09:33→12:35)
[2018-08-25] MEDS: CHLORHEXIDINE 0.12% ORAL RINSE 60 ML BOTTLE SWISH/SPIT SCH ×2 (09:33→21:45)
[2018-08-25] MEDS: PROMETHAZINE 25 MG TABLET PO PRN (11:10)
[2018-08-25] MEDS: MAGNESIUM HYDROXIDE SUSP 30 ML UDCUP PO PRN (12:35)
[2018-08-25] MEDS: tiZANidine 4 MG TABLET PO PRN (14:57)
[2018-08-26] MEDS: tiZANidine 4 MG TABLET PO PRN (03:25)
[2018-08-26] MEDS: INSULIN REGULAR 100 UNIT/ML SUBCUT SCH ×7 (04:40→23:58)
[2018-08-26 05:07] LABS: Albumin 2.9 G/DL (3.4-5.0); Bilirubin,Direct 0.42 MG/DL (0.0-0.20); Bilirubin,Indirect 0.4 MG/DL (0.0-1.0); Bilirubin,Total 0.8 MG/DL (0.2-1.0); CKMB % 1.3 %; Calcium 7.9 MG/DL (8.5-10.1); Osmolality,Calculated 291.1 MOS/KG (273-304)
[2018-08-26 05:13] LABS: Troponin I 5.73 NG/ML (0.00-0.045)
[2018-08-26 05:23] LABS: Basophils % 0.2 % (0.0-0.8); Hematocrit 29.7 VOL% (35.7-47.0); Hemoglobin 9.8 GM/DL (12.0-16.0); Immature Granulocytes % 0.9 %; Immature Granulocytes Absolute 0.12 #; Lymphocytes # 0.9 10*3/uL (1.4-4.0); Lymphocytes % 7.1 % (21.3-54.2); Mean Corpuscular Hemoglobin 29 PG (27-34); Mean Corpuscular Volume 87.4 FL (87-102); Mean Platelet Volume 11.9 FL (9.6-12.0); Monocytes # 1.3 10*3/uL (0.11-0.8); Monocytes % 9.9 % (1.7-12.7); Neutrophils # 10.4 10*3/uL (1.4-7.4); Neutrophils % 81.9 % (38.7-73.9); Red Cell Distribution Width 15.9 % (9.3-17.3); White Blood Count 12.7 T/CUMM (4-12)
[2018-08-26 05:24] LABS: Platelet Count 96 T/CUMM (130-400)
[2018-08-26 05:54] LABS: Hypochromasia 1+; Ovalocytes Slight; Platelet Estimate Decreased
[2018-08-26] MEDS ORDERED: FUROSEMIDE 40 MG/4 ML VIAL IV ONE (06:00)
[2018-08-26] MEDS: LEVOTHYROXINE 25 MCG TABLET PO SCH (07:00)
[2018-08-26] MEDS: SODIUM CHLOR 0.45% KCL 20 MEQ 20 MEQ/1,000 ML BAG IV SCH (09:06)
[2018-08-26] MEDS: CARVEDILOL 3.125 MG TABLET PO SCH ×2 (09:09→21:17)
[2018-08-26] MEDS: FERROUS SULFATE 325 MG TABLET PO SCH ×2 (09:09→09:10)
[2018-08-26] MEDS: ASPIRIN EC 81 MG TABLET PO SCH (09:10)
[2018-08-26] MEDS: PANTOPRAZOLE 40 MG TABLET PO SCH (09:10)
[2018-08-26] MEDS: CHOLECALCIFEROL 1,000 UNIT TABLET PO SCH (09:10)
[2018-08-26] MEDS: CETIRIZINE 10 MG TABLET PO SCH (09:10)
[2018-08-26] MEDS: ALLOPURINOL 100 MG TABLET PO SCH (09:10)
[2018-08-26] MEDS: DOCUSATE SODIUM 100 MG CAPSULE PO SCH (09:10)
[2018-08-26] MEDS: FENOFIBRATE 160 MG TABLET PO SCH (09:10)
[2018-08-26] MEDS: DIGOXIN 0.125 MG TABLET PO SCH (09:10)
[2018-08-26] MEDS: CHLORHEXIDINE 0.12% ORAL RINSE 60 ML BOTTLE SWISH/SPIT SCH ×2 (09:11→21:18)
[2018-08-26] MEDS: MEGESTROL 40 MG TABLET PO SCH (09:14)
[2018-08-26] MEDS: FUROSEMIDE 20 MG TABLET PO SCH ×2 (09:15→16:37)
[2018-08-26] MEDS: ONDANSETRON 4 MG/2 ML VIAL IV PRN (11:01)
[2018-08-26] MEDS: oxyCODONE/ACETAMINOPHEN 5-325 MG TABLET PO PRN ×4 (11:02→23:10)
[2018-08-26] MEDS: ALBUTEROL 1.25 MG/3 ML NEB RESP TX SCH ×2 (15:35→19:37)
[2018-08-26 20:55] LABS: Apearance,Urine CLEAR (Clear); Bacteria,Urine Occasional /HPF (Few); Bilirubin,Urine Negative (Negative); Blood, Urine Small mg/dL (Negative); Glucose,Urine (UA) Negative (Negative); Ketones,Urine Negative (Negative); Nitrite,Urine Negative (Negative); Protein,Urine Negative; RBC,Urine 2 /HPF (0-4); Squamous Epithelial Cell,Urine Occasional /HPF (0-10); Urine Color Yellow (Yellow); Urine Specific Gravity 1.015 (1.001-1.035); Urine Urobilinogen < 2.0 EU/DL (0.2-1.0); WBC,Urine <1 /HPF (0-6)
[2018-08-27] MEDS: ALBUTEROL 1.25 MG/3 ML NEB RESP TX SCH ×4 (00:47→19:11)
[2018-08-27] MEDS: MORPHINE 4 MG/1 ML VIAL IV PRN (01:22)
[2018-08-27] MEDS: oxyCODONE/ACETAMINOPHEN 5-325 MG TABLET PO PRN ×4 (05:12→20:29)
[2018-08-27] MEDS: INSULIN REGULAR 100 UNIT/ML SUBCUT SCH (05:15)
[2018-08-27] MEDS: LEVOTHYROXINE 25 MCG TABLET PO SCH (06:19)
[2018-08-27 06:28] LABS: Basophils % 0.2 % (0.0-0.8); Eosinophils % 0.6 % (0.00-10.9); Immature Granulocytes % 0.5 %; Immature Granulocytes Absolute 0.03 #; Lymphocytes # 0.8 10*3/uL (1.4-4.0); Lymphocytes % 12.7 % (21.3-54.2); Mean Corpuscular HGB Conc 32.1 GM/DL (32-36); Mean Corpuscular Hemoglobin 29 PG (27-34); Mean Corpuscular Volume 88.6 FL (87-102); Mean Platelet Volume 11.6 FL (9.6-12.0); Monocytes # 0.8 10*3/uL (0.11-0.8); Monocytes % 13.3 % (1.7-12.7); Neutrophils # 4.5 10*3/uL (1.4-7.4); Neutrophils % 72.7 % (38.7-73.9); Platelet Count 88 T/CUMM (130-400); Red Blood Count 3.16 MC/CUMM (3.8-5.5); Red Cell Distribution Width 15.3 % (9.3-17.3); White Blood Count 6.2 T/CUMM (4-12)
[2018-08-27 06:52] LABS: Alanine Aminotransferase 24 U/L (13-56); Albumin 2.8 G/DL (3.4-5.0); Alkaline Phosphatase 32 U/L (45-117); Aspartate Amino Transferase 51 U/L (0-37); Bilirubin,Indirect 0.8 MG/DL (0.0-1.0); Blood Urea Nitrogen 37 MG/DL (7-18); Calcium 7.9 MG/DL (8.5-10.1); Glucose 128 MG/DL (74-106); Osmolality,Calculated 291.3 MOS/KG (273-304); Sodium 141 MMOL/L (136-145)
[2018-08-27] MEDS: DIGOXIN 0.125 MG TABLET PO SCH (08:45)
[2018-08-27] MEDS: DOCUSATE SODIUM 100 MG CAPSULE PO SCH (08:45)
[2018-08-27] MEDS: CARVEDILOL 3.125 MG TABLET PO SCH (08:46)
[2018-08-27] MEDS: FERROUS SULFATE 325 MG TABLET PO SCH ×2 (08:46→08:47)
[2018-08-27] MEDS: FENOFIBRATE 160 MG TABLET PO SCH (08:46)
[2018-08-27] MEDS: FUROSEMIDE 20 MG TABLET PO SCH ×2 (08:46→16:59)
[2018-08-27] MEDS: CETIRIZINE 10 MG TABLET PO SCH (08:46)
[2018-08-27] MEDS: CHOLECALCIFEROL 1,000 UNIT TABLET PO SCH (08:46)
[2018-08-27] MEDS: ALLOPURINOL 100 MG TABLET PO SCH (08:46)
[2018-08-27] MEDS: PANTOPRAZOLE 40 MG TABLET PO SCH (08:46)
[2018-08-27] MEDS: MEGESTROL 40 MG TABLET PO SCH (08:46)
[2018-08-27] MEDS: ASPIRIN EC 81 MG TABLET PO SCH (08:46)
[2018-08-27] MEDS: CHLORHEXIDINE 0.12% ORAL RINSE 60 ML BOTTLE SWISH/SPIT SCH ×2 (08:47→20:30)
[2018-08-27 09:59] LABS: Band Neutrophils 2 % (0-10); Eosinophils 1 % (0-10); Hypochromasia 1+; Lymphocytes 14 % (20-55); Ovalocytes Few; Platelet Estimate Decreased; Polychromasia Slight; Segmented Neutrophils 78 % (50-85); Total Cells Counted 100
[2018-08-27] MEDS: CARVEDILOL 6.25 MG TABLET PO SCH (16:59)
[2018-08-27] MEDS: PROMETHAZINE 25 MG TABLET PO PRN (20:29)
[2018-08-28] MEDS: ALBUTEROL 1.25 MG/3 ML NEB RESP TX SCH ×4 (00:43→18:50)
[2018-08-28] MEDS: oxyCODONE/ACETAMINOPHEN 5-325 MG TABLET PO PRN ×3 (01:23→20:20)
[2018-08-28 05:08] LABS: Basophils % 0.2 % (0.0-0.8); Eosinophils # 0.1 10*3/uL (0.0-0.87); Eosinophils % 1.1 % (0.00-10.9); Hematocrit 25.6 VOL% (35.7-47.0); Hemoglobin 8.3 GM/DL (12.0-16.0); Immature Granulocytes % 0.8 %; Immature Granulocytes Absolute 0.08 #; Lymphocytes # 0.9 10*3/uL (1.4-4.0); Lymphocytes % 8.5 % (21.3-54.2); Mean Corpuscular HGB Conc 32.4 GM/DL (32-36); Mean Corpuscular Hemoglobin 28 PG (27-34); Mean Corpuscular Volume 87.4 FL (87-102); Mean Platelet Volume 11.7 FL (9.6-12.0); Monocytes # 1.2 10*3/uL (0.11-0.8); Monocytes % 11.4 % (1.7-12.7); Neutrophils # 7.9 10*3/uL (1.4-7.4); Platelet Count 112 T/CUMM (130-400); Red Blood Count 2.93 MC/CUMM (3.8-5.5); Red Cell Distribution Width 14.8 % (9.3-17.3); White Blood Count 10.1 T/CUMM (4-12)
[2018-08-28] MEDS: LEVOTHYROXINE 25 MCG TABLET PO SCH (05:37)
[2018-08-28 06:38] LABS: Calcium 7.5 MG/DL (8.5-10.1); Osmolality,Calculated 284.4 MOS/KG (273-304); Potassium 4.1 MMOL/L (3.5-5.1)
[2018-08-28] MEDS ORDERED: BISACODYL 10 MG SUPP RECTAL PRN (08:17)
[2018-08-28] MEDS: CHOLECALCIFEROL 1,000 UNIT TABLET PO SCH (09:02)
[2018-08-28] MEDS: CETIRIZINE 10 MG TABLET PO SCH (09:02)
[2018-08-28] MEDS: CARVEDILOL 6.25 MG TABLET PO SCH ×2 (09:02→16:11)
[2018-08-28] MEDS: ALLOPURINOL 100 MG TABLET PO SCH (09:02)
[2018-08-28] MEDS: MEGESTROL 40 MG TABLET PO SCH (09:02)
[2018-08-28] MEDS: DIGOXIN 0.125 MG TABLET PO SCH (09:02)
[2018-08-28] MEDS: FUROSEMIDE 20 MG TABLET PO SCH ×2 (09:02→16:11)
[2018-08-28] MEDS: ASPIRIN EC 81 MG TABLET PO SCH (09:02)
[2018-08-28] MEDS: CHLORHEXIDINE 0.12% ORAL RINSE 60 ML BOTTLE SWISH/SPIT SCH ×2 (09:03→21:52)
[2018-08-28] MEDS: FENOFIBRATE 160 MG TABLET PO SCH (09:03)
[2018-08-28] MEDS: FERROUS SULFATE 325 MG TABLET PO SCH ×2 (09:03→09:04)
[2018-08-28] MEDS: DOCUSATE SODIUM 100 MG CAPSULE PO SCH (09:03)
[2018-08-28] MEDS: PANTOPRAZOLE 40 MG TABLET PO SCH (09:03)
[2018-08-28] MEDS: MAGNESIUM HYDROXIDE SUSP 30 ML UDCUP PO PRN (09:04)
[2018-08-28 11:04] LABS: Band Neutrophils 1 % (0-10); Lymphocytes 11 % (20-55); Platelet Estimate Decreased; Polychromasia Slight; Segmented Neutrophils 81 % (50-85); Total Cells Counted 100
[2018-08-28 11:05] LABS: Hypochromasia 1+; Ovalocytes Slight; Target Cells Slight
[2018-08-28] MEDS: ONDANSETRON 4 MG/2 ML VIAL IV PRN (11:44)
[2018-08-29] MEDS: ALBUTEROL 1.25 MG/3 ML NEB RESP TX SCH ×4 (00:30→20:12)
[2018-08-29] MEDS: oxyCODONE/ACETAMINOPHEN 5-325 MG TABLET PO PRN ×4 (02:06→20:08)
[2018-08-29] MEDS: tiZANidine 4 MG TABLET PO PRN (04:02)
[2018-08-29 05:34] LABS: Basophils % 0.3 % (0.0-0.8); Eosinophils # 0.2 10*3/uL (0.0-0.87); Eosinophils % 1.6 % (0.00-10.9); Hematocrit 26.6 VOL% (35.7-47.0); Hemoglobin 8.4 GM/DL (12.0-16.0); Immature Granulocytes % 1.6 %; Immature Granulocytes Absolute 0.19 #; Lymphocytes # 1.3 10*3/uL (1.4-4.0); Lymphocytes % 10.5 % (21.3-54.2); Mean Corpuscular HGB Conc 31.6 GM/DL (32-36); Mean Corpuscular Hemoglobin 28 PG (27-34); Mean Corpuscular Volume 88.7 FL (87-102); Mean Platelet Volume 11.5 FL (9.6-12.0); Monocytes # 1.2 10*3/uL (0.11-0.8); Neutrophils # 9.1 10*3/uL (1.4-7.4); Platelet Count 152 T/CUMM (130-400); Red Cell Distribution Width 15.1 % (9.3-17.3); White Blood Count 11.9 T/CUMM (4-12)
[2018-08-29] MEDS: LEVOTHYROXINE 25 MCG TABLET PO SCH (05:42)
[2018-08-29 06:18] LABS: Calcium 7.7 MG/DL (8.5-10.1); Potassium 4.6 MMOL/L (3.5-5.1)
[2018-08-29 06:21] LABS: Alanine Aminotransferase 22 U/L (13-56); Albumin 2.5 G/DL (3.4-5.0); Alkaline Phosphatase 69 U/L (45-117); Aspartate Amino Transferase 36 U/L (0-37); Bilirubin,Indirect 0.3 MG/DL (0.0-1.0); Blood Urea Nitrogen 28 MG/DL (7-18); Calcium 7.8 MG/DL (8.5-10.1); Glucose 132 MG/DL (74-106); Osmolality,Calculated 288.3 MOS/KG (273-304); Potassium 4.4 MMOL/L (3.5-5.1); Sodium 141 MMOL/L (136-145); Total Protein 6.2 G/DL (6.4-8.3)
[2018-08-29 06:23] LABS: Troponin I 0.765 NG/ML (0.00-0.045)
[2018-08-29] MEDS: CHOLECALCIFEROL 1,000 UNIT TABLET PO SCH (10:29)
[2018-08-29] MEDS: MEGESTROL 40 MG TABLET PO SCH (10:30)
[2018-08-29] MEDS: PANTOPRAZOLE 40 MG TABLET PO SCH (10:30)
[2018-08-29] MEDS: ASPIRIN EC 81 MG TABLET PO SCH (10:30)
[2018-08-29] MEDS: DOCUSATE SODIUM 100 MG CAPSULE PO SCH (10:31)
[2018-08-29] MEDS: FERROUS SULFATE 325 MG TABLET PO SCH ×2 (10:31→10:33)
[2018-08-29] MEDS: FUROSEMIDE 20 MG TABLET PO SCH ×2 (10:32→15:41)
[2018-08-29] MEDS: CARVEDILOL 6.25 MG TABLET PO SCH ×2 (10:33→17:46)
[2018-08-29] MEDS: FENOFIBRATE 160 MG TABLET PO SCH (10:34)
[2018-08-29] MEDS: ALLOPURINOL 100 MG TABLET PO SCH (10:35)
[2018-08-29] MEDS: CHLORHEXIDINE 0.12% ORAL RINSE 60 ML BOTTLE SWISH/SPIT SCH ×2 (10:35→20:10)
[2018-08-29] MEDS: CETIRIZINE 10 MG TABLET PO SCH (10:35)
[2018-08-29] MEDS: ONDANSETRON 4 MG/2 ML VIAL IV PRN (11:20)
[2018-08-29] MEDS: DIGOXIN 0.125 MG TABLET PO SCH (13:45)
[2018-08-29] MEDS: LEVOFLOXACIN INJ 250 MG in PREMIX 1 EACH IV SCH (13:49)
[2018-08-29] MEDS: PROMETHAZINE 25 MG TABLET PO PRN (20:08)
[2018-08-30] MEDS: ALBUTEROL 1.25 MG/3 ML NEB RESP TX SCH ×4 (01:55→19:15)
[2018-08-30] MEDS: MORPHINE 4 MG/1 ML VIAL IV PRN ×4 (03:30→21:57)
[2018-08-30 05:11] LABS: Basophils % 0.2 % (0.0-0.8); Eosinophils # 0.2 10*3/uL (0.0-0.87); Eosinophils % 1.7 % (0.00-10.9); Hematocrit 26.2 VOL% (35.7-47.0); Hemoglobin 8.4 GM/DL (12.0-16.0); Immature Granulocytes % 4.3 %; Immature Granulocytes Absolute 0.57 #; Lymphocytes # 1.2 10*3/uL (1.4-4.0); Lymphocytes % 8.7 % (21.3-54.2); Mean Corpuscular HGB Conc 32.1 GM/DL (32-36); Mean Corpuscular Hemoglobin 28 PG (27-34); Mean Corpuscular Volume 88.5 FL (87-102); Monocytes # 1.3 10*3/uL (0.11-0.8); Monocytes % 9.6 % (1.7-12.7); Neutrophils % 75.5 % (38.7-73.9); Platelet Count 202 T/CUMM (130-400); Red Blood Count 2.96 MC/CUMM (3.8-5.5); Red Cell Distribution Width 15.2 % (9.3-17.3); White Blood Count 13.3 T/CUMM (4-12)
[2018-08-30 05:23] LABS: Calcium 8.3 MG/DL (8.5-10.1); Osmolality,Calculated 282.4 MOS/KG (273-304); Potassium 4.7 MMOL/L (3.5-5.1)
[2018-08-30 05:29] LABS: Alanine Aminotransferase 21 U/L (13-56); Albumin 2.3 G/DL (3.4-5.0); Alkaline Phosphatase 53 U/L (45-117); Aspartate Amino Transferase 37 U/L (0-37); Bilirubin,Indirect 0.3 MG/DL (0.0-1.0); Blood Urea Nitrogen 25 MG/DL (7-18); Calcium 8.1 MG/DL (8.5-10.1); Glucose 77 MG/DL (74-106); Osmolality,Calculated 281.4 MOS/KG (273-304); Potassium 4.7 MMOL/L (3.5-5.1); Sodium 140 MMOL/L (136-145); Total Protein 6.3 G/DL (6.4-8.3)
[2018-08-30 05:30] LABS: Troponin I 0.507 NG/ML (0.00-0.045)
[2018-08-30 05:39] LABS: Eosinophils 3 % (0-10); Hypochromasia 1+; Lymphocytes 2 % (20-55); Nucleated Red Blood Cells 1 (0-5); Segmented Neutrophils 86 % (50-85); Total Cells Counted 100
[2018-08-30 05:40] LABS: Microcytosis Slight; Ovalocytes Slight; Platelet Estimate Normal
[2018-08-30] MEDS: LEVOTHYROXINE 25 MCG TABLET PO SCH (06:23)
[2018-08-30] MEDS: MEGESTROL 40 MG TABLET PO SCH (09:21)
[2018-08-30] MEDS: FUROSEMIDE 20 MG TABLET PO SCH (09:21)
[2018-08-30] MEDS: PANTOPRAZOLE 40 MG TABLET PO SCH (09:22)
[2018-08-30] MEDS: FENOFIBRATE 160 MG TABLET PO SCH (09:22)
[2018-08-30] MEDS: DOCUSATE SODIUM 100 MG CAPSULE PO SCH (09:22)
[2018-08-30] MEDS: ASPIRIN EC 81 MG TABLET PO SCH (09:22)
[2018-08-30] MEDS: CHOLECALCIFEROL 1,000 UNIT TABLET PO SCH (09:22)
[2018-08-30] MEDS: CETIRIZINE 10 MG TABLET PO SCH (09:22)
[2018-08-30] MEDS: CARVEDILOL 6.25 MG TABLET PO SCH ×2 (09:22→18:26)
[2018-08-30] MEDS: ALLOPURINOL 100 MG TABLET PO SCH (09:22)
[2018-08-30] MEDS: DIGOXIN 0.125 MG TABLET PO SCH (09:22)
[2018-08-30] MEDS: FERROUS SULFATE 325 MG TABLET PO SCH ×2 (09:22)
[2018-08-30] MEDS: CHLORHEXIDINE 0.12% ORAL RINSE 60 ML BOTTLE SWISH/SPIT SCH ×2 (09:26→21:58)
[2018-08-30] MEDS ORDERED: SODIUM CHLORIDE 0.45% 1,000 ML IV SCH ×2 (10:30→14:00)
[2018-08-30] MEDS: LEVOFLOXACIN INJ 250 MG in PREMIX 1 EACH IV SCH (11:45)
[2018-08-30] MEDS: PROMETHAZINE 25 MG TABLET PO PRN ×2 (15:31→21:57)
[2018-08-31] MEDS: ALBUTEROL 1.25 MG/3 ML NEB RESP TX SCH ×4 (01:30→19:21)
[2018-08-31] MEDS: MORPHINE 4 MG/1 ML VIAL IV PRN (02:00)
[2018-08-31 05:12] LABS: Basophils % 0.3 % (0.0-0.8); Eosinophils # 0.2 10*3/uL (0.0-0.87); Eosinophils % 1.4 % (0.00-10.9); Hematocrit 25.6 VOL% (35.7-47.0); Hemoglobin 8.2 GM/DL (12.0-16.0); Immature Granulocytes % 4.9 %; Immature Granulocytes Absolute 0.69 #; Lymphocytes # 1.5 10*3/uL (1.4-4.0); Lymphocytes % 10.5 % (21.3-54.2); Mean Corpuscular Hemoglobin 28 PG (27-34); Mean Corpuscular Volume 87.7 FL (87-102); Mean Platelet Volume 10.7 FL (9.6-12.0); Monocytes # 1.5 10*3/uL (0.11-0.8); Monocytes % 10.6 % (1.7-12.7); Neutrophils # 10.2 10*3/uL (1.4-7.4); Neutrophils % 72.3 % (38.7-73.9); Platelet Count 228 T/CUMM (130-400); Red Blood Count 2.92 MC/CUMM (3.8-5.5); Red Cell Distribution Width 15.3 % (9.3-17.3); White Blood Count 14.2 T/CUMM (4-12)
[2018-08-31 05:28] LABS: Calcium 8.2 MG/DL (8.5-10.1); Osmolality,Calculated 279.5 MOS/KG (273-304); Potassium 4.8 MMOL/L (3.5-5.1)
[2018-08-31 05:41] LABS: Band Neutrophils 2 % (0-10); Eosinophils 1 % (0-10); Hypochromasia 1+; Lymphocytes 7 % (20-55); Ovalocytes Slight; Platelet Estimate Adequate; Segmented Neutrophils 79 % (50-85); Total Cells Counted 100
[2018-08-31 05:42] LABS: Microcytosis Slight
[2018-08-31] MEDS: oxyCODONE/ACETAMINOPHEN 5-325 MG TABLET PO PRN ×3 (08:13→21:11)
[2018-08-31] MEDS: FENOFIBRATE 160 MG TABLET PO SCH (09:57)
[2018-08-31] MEDS: CHOLECALCIFEROL 1,000 UNIT TABLET PO SCH (09:57)
[2018-08-31] MEDS: MEGESTROL 40 MG TABLET PO SCH (09:57)
[2018-08-31] MEDS: DOCUSATE SODIUM 100 MG CAPSULE PO SCH (09:57)
[2018-08-31] MEDS: DIGOXIN 0.125 MG TABLET PO SCH (09:57)
[2018-08-31] MEDS: PANTOPRAZOLE 40 MG TABLET PO SCH (09:57)
[2018-08-31] MEDS: CETIRIZINE 10 MG TABLET PO SCH (09:58)
[2018-08-31] MEDS: CARVEDILOL 6.25 MG TABLET PO SCH (09:58)
[2018-08-31] MEDS: FERROUS SULFATE 325 MG TABLET PO SCH ×2 (09:58→09:59)
[2018-08-31] MEDS: ALLOPURINOL 100 MG TABLET PO SCH (10:01)
[2018-08-31] MEDS: ASPIRIN EC 81 MG TABLET PO SCH (10:01)
[2018-08-31] MEDS: CHLORHEXIDINE 0.12% ORAL RINSE 60 ML BOTTLE SWISH/SPIT SCH ×2 (10:16→21:16)
[2018-08-31] MEDS ORDERED: CARVEDILOL 6.25 MG TABLET PO ONE (11:30)
[2018-08-31] MEDS: LEVOFLOXACIN INJ 250 MG in PREMIX 1 EACH IV SCH (11:53)
[2018-08-31] MEDS: ONDANSETRON 4 MG/2 ML VIAL IV PRN ×2 (16:19→21:11)
[2018-08-31] MEDS: CARVEDILOL 12.5 MG TABLET PO SCH (21:11)
[2018-09-01] MEDS: ALBUTEROL 1.25 MG/3 ML NEB RESP TX SCH ×5 (00:26→19:57)
[2018-09-01 05:01] LABS: Basophils % 0.2 % (0.0-0.8); Eosinophils # 0.2 10*3/uL (0.0-0.87); Hematocrit 23.7 VOL% (35.7-47.0); Hemoglobin 7.7 GM/DL (12.0-16.0); Immature Granulocytes % 6.7 %; Immature Granulocytes Absolute 0.78 #; Lymphocytes # 1.6 10*3/uL (1.4-4.0); Lymphocytes % 13.3 % (21.3-54.2); Mean Corpuscular HGB Conc 32.5 GM/DL (32-36); Mean Corpuscular Hemoglobin 29 PG (27-34); Mean Corpuscular Volume 88.1 FL (87-102); Mean Platelet Volume 10.6 FL (9.6-12.0); Monocytes # 1.3 10*3/uL (0.11-0.8); Monocytes % 11.5 % (1.7-12.7); Neutrophils # 7.7 10*3/uL (1.4-7.4); Neutrophils % 66.3 % (38.7-73.9); Platelet Count 242 T/CUMM (130-400); Red Blood Count 2.69 MC/CUMM (3.8-5.5); Red Cell Distribution Width 15.6 % (9.3-17.3); White Blood Count 11.6 T/CUMM (4-12)
[2018-09-01 05:30] LABS: Calcium 8.5 MG/DL (8.5-10.1); Osmolality,Calculated 281.4 MOS/KG (273-304); Potassium 4.7 MMOL/L (3.5-5.1)
[2018-09-01 05:33] LABS: Band Neutrophils 4 % (0-10); Eosinophils 4 % (0-10); Hypochromasia 1+; Lymphocytes 15 % (20-55); Microcytosis Slight; Myelocytes 1 %; Ovalocytes Slight; Platelet Estimate Adequate; Segmented Neutrophils 67 % (50-85); Total Cells Counted 100
[2018-09-01] MEDS: oxyCODONE/ACETAMINOPHEN 5-325 MG TABLET PO PRN ×3 (06:09→20:14)
[2018-09-01] MEDS: DIGOXIN 0.125 MG TABLET PO SCH (08:55)
[2018-09-01] MEDS: CHOLECALCIFEROL 1,000 UNIT TABLET PO SCH (08:56)
[2018-09-01] MEDS: FENOFIBRATE 160 MG TABLET PO SCH (08:56)
[2018-09-01] MEDS: ASPIRIN EC 81 MG TABLET PO SCH (08:56)
[2018-09-01] MEDS: CARVEDILOL 12.5 MG TABLET PO SCH ×2 (08:56→20:14)
[2018-09-01] MEDS: DOCUSATE SODIUM 100 MG CAPSULE PO SCH (08:56)
[2018-09-01] MEDS: PANTOPRAZOLE 40 MG TABLET PO SCH (08:56)
[2018-09-01] MEDS: MEGESTROL 40 MG TABLET PO SCH (08:56)
[2018-09-01] MEDS: LEVOTHYROXINE 25 MCG TABLET PO SCH ×2 (08:56→08:57)
[2018-09-01] MEDS: FERROUS SULFATE 325 MG TABLET PO SCH ×2 (08:56→09:03)
[2018-09-01] MEDS: CETIRIZINE 10 MG TABLET PO SCH (08:57)
[2018-09-01] MEDS: CHLORHEXIDINE 0.12% ORAL RINSE 60 ML BOTTLE SWISH/SPIT SCH ×2 (09:04→20:24)
[2018-09-01] MEDS: ALLOPURINOL 100 MG TABLET PO SCH (09:06)
[2018-09-01] MEDS: ONDANSETRON 4 MG/2 ML VIAL IV PRN (20:14)
[2018-09-02] MEDS: ALBUTEROL 1.25 MG/3 ML NEB RESP TX SCH ×4 (00:47→21:36)
[2018-09-02] MEDS: oxyCODONE/ACETAMINOPHEN 5-325 MG TABLET PO PRN ×4 (02:35→20:52)
[2018-09-02 04:03] LABS: Basophils % 0.2 % (0.0-0.8); Eosinophils # 0.3 10*3/uL (0.0-0.87); Eosinophils % 2.3 % (0.00-10.9); Hematocrit 25.4 VOL% (35.7-47.0); Immature Granulocytes % 6.1 %; Immature Granulocytes Absolute 0.73 #; Lymphocytes # 1.6 10*3/uL (1.4-4.0); Lymphocytes % 13.1 % (21.3-54.2); Mean Corpuscular HGB Conc 31.5 GM/DL (32-36); Mean Corpuscular Hemoglobin 28 PG (27-34); Mean Corpuscular Volume 88.5 FL (87-102); Mean Platelet Volume 10.2 FL (9.6-12.0); Monocytes # 1.3 10*3/uL (0.11-0.8); Monocytes % 10.7 % (1.7-12.7); Neutrophils # 8.1 10*3/uL (1.4-7.4); Neutrophils % 67.6 % (38.7-73.9); Platelet Count 314 T/CUMM (130-400); Red Blood Count 2.87 MC/CUMM (3.8-5.5); Red Cell Distribution Width 15.7 % (9.3-17.3); White Blood Count 11.9 T/CUMM (4-12)
[2018-09-02 04:30] LABS: Calcium 8.6 MG/DL (8.5-10.1); Osmolality,Calculated 277.5 MOS/KG (273-304); Potassium 4.7 MMOL/L (3.5-5.1)
[2018-09-02] MEDS: LEVOTHYROXINE 25 MCG TABLET PO SCH (05:54)
[2018-09-02 06:12] LABS: Eosinophils 2 % (0-10); Lymphocytes 24 % (20-55); Segmented Neutrophils 72 % (50-85); Total Cells Counted 100
[2018-09-02 06:13] LABS: Platelet Estimate Normal; Polychromasia Few
[2018-09-02] MEDS: ALLOPURINOL 100 MG TABLET PO SCH (09:32)
[2018-09-02] MEDS: PANTOPRAZOLE 40 MG TABLET PO SCH (09:32)
[2018-09-02] MEDS: DOCUSATE SODIUM 100 MG CAPSULE PO SCH (09:32)
[2018-09-02] MEDS: CHOLECALCIFEROL 1,000 UNIT TABLET PO SCH (09:32)
[2018-09-02] MEDS: FERROUS SULFATE 325 MG TABLET PO SCH ×2 (09:32→09:33)
[2018-09-02] MEDS: CARVEDILOL 12.5 MG TABLET PO SCH ×2 (09:32→20:52)
[2018-09-02] MEDS: ASPIRIN EC 81 MG TABLET PO SCH (09:32)
[2018-09-02] MEDS: MEGESTROL 40 MG TABLET PO SCH (09:32)
[2018-09-02] MEDS: DIGOXIN 0.125 MG TABLET PO SCH (09:32)
[2018-09-02] MEDS: CETIRIZINE 10 MG TABLET PO SCH (09:32)
[2018-09-02] MEDS: FENOFIBRATE 160 MG TABLET PO SCH (09:32)
[2018-09-02] MEDS: CHLORHEXIDINE 0.12% ORAL RINSE 60 ML BOTTLE SWISH/SPIT SCH ×2 (09:33→20:55)
[2018-09-02] MEDS: MAGNESIUM HYDROXIDE SUSP 30 ML UDCUP PO PRN (09:38)
[2018-09-02] MEDS: PROMETHAZINE 25 MG TABLET PO PRN (20:52)
[2018-09-03] MEDS: oxyCODONE/ACETAMINOPHEN 5-325 MG TABLET PO PRN ×4 (00:52→21:39)
[2018-09-03] MEDS: ALBUTEROL 1.25 MG/3 ML NEB RESP TX SCH ×4 (01:35→22:29)
[2018-09-03 03:29] LABS: Basophils % 0.2 % (0.0-0.8); Eosinophils # 0.2 10*3/uL (0.0-0.87); Eosinophils % 1.5 % (0.00-10.9); Hematocrit 22.2 VOL% (35.7-47.0); Immature Granulocytes % 5.2 %; Immature Granulocytes Absolute 0.62 #; Lymphocytes # 1.5 10*3/uL (1.4-4.0); Lymphocytes % 12.4 % (21.3-54.2); Mean Corpuscular HGB Conc 31.5 GM/DL (32-36); Mean Corpuscular Hemoglobin 28 PG (27-34); Mean Corpuscular Volume 88.1 FL (87-102); Mean Platelet Volume 10.6 FL (9.6-12.0); Monocytes % 8.4 % (1.7-12.7); Neutrophils # 8.7 10*3/uL (1.4-7.4); Neutrophils % 72.3 % (38.7-73.9); Platelet Count 255 T/CUMM (130-400); Red Blood Count 2.52 MC/CUMM (3.8-5.5); Red Cell Distribution Width 15.7 % (9.3-17.3)
[2018-09-03 03:46] LABS: Calcium 8.3 MG/DL (8.5-10.1); Osmolality,Calculated 283.4 MOS/KG (273-304); Potassium 4.9 MMOL/L (3.5-5.1)
[2018-09-03 04:28] LABS: Hypochromasia Slight; Lymphocytes 14 % (20-55); Platelet Estimate Normal; Segmented Neutrophils 80 % (50-85); Total Cells Counted 100
[2018-09-03] MEDS: LEVOTHYROXINE 25 MCG TABLET PO SCH (05:44)
[2018-09-03] MEDS: CARVEDILOL 12.5 MG TABLET PO SCH ×2 (09:05→21:40)
[2018-09-03] MEDS: ASPIRIN EC 81 MG TABLET PO SCH (09:05)
[2018-09-03] MEDS: ALLOPURINOL 100 MG TABLET PO SCH (09:05)
[2018-09-03] MEDS: FENOFIBRATE 160 MG TABLET PO SCH (09:05)
[2018-09-03] MEDS: PANTOPRAZOLE 40 MG TABLET PO SCH (09:05)
[2018-09-03] MEDS: FERROUS SULFATE 325 MG TABLET PO SCH (09:05)
[2018-09-03] MEDS: CHOLECALCIFEROL 1,000 UNIT TABLET PO SCH (09:05)
[2018-09-03] MEDS: DOCUSATE SODIUM 100 MG CAPSULE PO SCH (09:05)
[2018-09-03] MEDS: CETIRIZINE 10 MG TABLET PO SCH (09:05)
[2018-09-03] MEDS: MEGESTROL 40 MG TABLET PO SCH (09:06)
[2018-09-03] MEDS: DIGOXIN 0.125 MG TABLET PO SCH (09:06)
[2018-09-03] MEDS: CHLORHEXIDINE 0.12% ORAL RINSE 60 ML BOTTLE SWISH/SPIT SCH ×2 (09:07→21:45)
[2018-09-03] MEDS ORDERED: SODIUM CHLORIDE 0.9% 1,000 ML IV PRN (09:47)
[2018-09-03] MEDS: ONDANSETRON 4 MG/2 ML VIAL IV PRN (12:26)
[2018-09-03 20:15] LABS: Hematocrit 29.7 VOL% (35.7-47.0)
[2018-09-03 20:16] LABS: Hemoglobin 9.8 GM/DL (12.0-16.0)
[2018-09-04] MEDS: oxyCODONE/ACETAMINOPHEN 5-325 MG TABLET PO PRN ×4 (03:11→21:23)
[2018-09-04] MEDS: PROMETHAZINE 25 MG TABLET PO PRN (03:25)
[2018-09-04] MEDS: ALBUTEROL 1.25 MG/3 ML NEB RESP TX SCH ×4 (03:30→19:27)
[2018-09-04 04:09] LABS: Basophils % 0.3 % (0.0-0.8); Eosinophils # 0.2 10*3/uL (0.0-0.87); Eosinophils % 1.9 % (0.00-10.9); Hematocrit 28.9 VOL% (35.7-47.0); Hemoglobin 9.5 GM/DL (12.0-16.0); Immature Granulocytes % 4.5 %; Immature Granulocytes Absolute 0.57 #; Lymphocytes # 1.5 10*3/uL (1.4-4.0); Lymphocytes % 11.6 % (21.3-54.2); Mean Corpuscular HGB Conc 32.9 GM/DL (32-36); Mean Corpuscular Hemoglobin 29 PG (27-34); Mean Corpuscular Volume 87.8 FL (87-102); Monocytes % 8.1 % (1.7-12.7); Neutrophils # 9.4 10*3/uL (1.4-7.4); Neutrophils % 73.6 % (38.7-73.9); Platelet Count 277 T/CUMM (130-400); Red Blood Count 3.29 MC/CUMM (3.8-5.5); Red Cell Distribution Width 15.3 % (9.3-17.3); White Blood Count 12.8 T/CUMM (4-12)
[2018-09-04 04:34] LABS: Calcium 8.6 MG/DL (8.5-10.1); Osmolality,Calculated 282.3 MOS/KG (273-304); Potassium 4.9 MMOL/L (3.5-5.1)
[2018-09-04 05:31] LABS: Hypochromasia Slight; Lymphocytes 7 % (20-55); Platelet Estimate Normal; Polychromasia Few; Segmented Neutrophils 90 % (50-85); Total Cells Counted 100
[2018-09-04] MEDS: LEVOTHYROXINE 25 MCG TABLET PO SCH (07:20)
[2018-09-04] MEDS: CHOLECALCIFEROL 1,000 UNIT TABLET PO SCH (08:58)
[2018-09-04] MEDS: DIGOXIN 0.125 MG TABLET PO SCH (08:58)
[2018-09-04] MEDS: CETIRIZINE 10 MG TABLET PO SCH (08:58)
[2018-09-04] MEDS: ALLOPURINOL 100 MG TABLET PO SCH (08:58)
[2018-09-04] MEDS: MEGESTROL 40 MG TABLET PO SCH (08:58)
[2018-09-04] MEDS: FERROUS SULFATE 325 MG TABLET PO SCH (08:59)
[2018-09-04] MEDS: FENOFIBRATE 160 MG TABLET PO SCH (08:59)
[2018-09-04] MEDS: CARVEDILOL 12.5 MG TABLET PO SCH ×2 (08:59→21:23)
[2018-09-04] MEDS: ASPIRIN EC 81 MG TABLET PO SCH (08:59)
[2018-09-04] MEDS: DOCUSATE SODIUM 100 MG CAPSULE PO SCH (08:59)
[2018-09-04] MEDS: CHLORHEXIDINE 0.12% ORAL RINSE 60 ML BOTTLE SWISH/SPIT SCH ×2 (08:59→21:22)
[2018-09-04] MEDS: PANTOPRAZOLE 40 MG TABLET PO SCH (08:59)
[2018-09-05] MEDS: ALBUTEROL 1.25 MG/3 ML NEB RESP TX SCH ×4 (00:34→19:12)
[2018-09-05 04:10] LABS: Basophils % 0.3 % (0.0-0.8); Eosinophils # 0.2 10*3/uL (0.0-0.87); Eosinophils % 1.9 % (0.00-10.9); Hematocrit 30.1 VOL% (35.7-47.0); Hemoglobin 9.6 GM/DL (12.0-16.0); Immature Granulocytes % 1.9 %; Immature Granulocytes Absolute 0.23 #; Lymphocytes # 1.4 10*3/uL (1.4-4.0); Lymphocytes % 11.4 % (21.3-54.2); Mean Corpuscular HGB Conc 31.9 GM/DL (32-36); Mean Corpuscular Hemoglobin 28 PG (27-34); Mean Corpuscular Volume 89.1 FL (87-102); Mean Platelet Volume 10.1 FL (9.6-12.0); Monocytes % 8.5 % (1.7-12.7); Neutrophils # 9.1 10*3/uL (1.4-7.4); Platelet Count 263 T/CUMM (130-400); Red Blood Count 3.38 MC/CUMM (3.8-5.5); Red Cell Distribution Width 15.2 % (9.3-17.3)
[2018-09-05 04:36] LABS: Calcium 8.5 MG/DL (8.5-10.1); Osmolality,Calculated 281.4 MOS/KG (273-304); Potassium 4.7 MMOL/L (3.5-5.1)
[2018-09-05] MEDS: LEVOTHYROXINE 25 MCG TABLET PO SCH (06:30)
[2018-09-05] MEDS: CARVEDILOL 12.5 MG TABLET PO SCH ×2 (10:04→20:12)
[2018-09-05] MEDS: FENOFIBRATE 160 MG TABLET PO SCH (10:05)
[2018-09-05] MEDS: DIGOXIN 0.125 MG TABLET PO SCH (10:05)
[2018-09-05] MEDS: ASPIRIN EC 81 MG TABLET PO SCH (10:05)
[2018-09-05] MEDS: MEGESTROL 40 MG TABLET PO SCH (10:05)
[2018-09-05] MEDS: PANTOPRAZOLE 40 MG TABLET PO SCH (10:05)
[2018-09-05] MEDS: CHOLECALCIFEROL 1,000 UNIT TABLET PO SCH (10:05)
[2018-09-05] MEDS: FERROUS SULFATE 325 MG TABLET PO SCH (10:05)
[2018-09-05] MEDS: DOCUSATE SODIUM 100 MG CAPSULE PO SCH (10:05)
[2018-09-05] MEDS: CETIRIZINE 10 MG TABLET PO SCH (10:06)
[2018-09-05] MEDS: ALLOPURINOL 100 MG TABLET PO SCH (10:09)
[2018-09-05] MEDS: CHLORHEXIDINE 0.12% ORAL RINSE 60 ML BOTTLE SWISH/SPIT SCH ×2 (10:11→20:12)
[2018-09-05] MEDS: oxyCODONE/ACETAMINOPHEN 5-325 MG TABLET PO PRN ×2 (13:21→20:11)
[2018-09-05] MEDS: ONDANSETRON 4 MG/2 ML VIAL IV PRN (20:12)
[2018-09-06] MEDS: ALBUTEROL 1.25 MG/3 ML NEB RESP TX SCH ×4 (00:44→20:04)
[2018-09-06] MEDS: oxyCODONE/ACETAMINOPHEN 5-325 MG TABLET PO PRN ×3 (05:33→17:50)
[2018-09-06] MEDS: ONDANSETRON 4 MG/2 ML VIAL IV PRN ×2 (05:40→21:07)
[2018-09-06] MEDS: MAGNESIUM HYDROXIDE SUSP 30 ML UDCUP PO PRN (05:42)
[2018-09-06] MEDS: LEVOTHYROXINE 25 MCG TABLET PO SCH (06:35)
[2018-09-06] MEDS: CHOLECALCIFEROL 1,000 UNIT TABLET PO SCH (09:40)
[2018-09-06] MEDS: DIGOXIN 0.125 MG TABLET PO SCH (09:40)
[2018-09-06] MEDS: FENOFIBRATE 160 MG TABLET PO SCH (09:40)
[2018-09-06] MEDS: PANTOPRAZOLE 40 MG TABLET PO SCH (09:41)
[2018-09-06] MEDS: MEGESTROL 40 MG TABLET PO SCH (09:41)
[2018-09-06] MEDS: CETIRIZINE 10 MG TABLET PO SCH (09:41)
[2018-09-06] MEDS: FERROUS SULFATE 325 MG TABLET PO SCH (09:41)
[2018-09-06] MEDS: ALLOPURINOL 100 MG TABLET PO SCH (09:41)
[2018-09-06] MEDS: DOCUSATE SODIUM 100 MG CAPSULE PO SCH (09:41)
[2018-09-06] MEDS: CARVEDILOL 12.5 MG TABLET PO SCH ×2 (09:41→21:07)
[2018-09-06] MEDS: CHLORHEXIDINE 0.12% ORAL RINSE 60 ML BOTTLE SWISH/SPIT SCH ×2 (09:43→21:07)
[2018-09-06] MEDS: ASPIRIN EC 81 MG TABLET PO SCH (09:43)
[2018-09-07] MEDS: ALBUTEROL 1.25 MG/3 ML NEB RESP TX SCH ×2 (01:43→07:38)
[2018-09-07 04:37] LABS: Basophils # 0.1 10*3/uL (0.0-0.2); Basophils % 0.6 % (0.0-0.8); Eosinophils # 0.2 10*3/uL (0.0-0.87); Eosinophils % 1.8 % (0.00-10.9); Hematocrit 29.4 VOL% (35.7-47.0); Hemoglobin 9.4 GM/DL (12.0-16.0); Immature Granulocytes % 1.3 %; Immature Granulocytes Absolute 0.13 #; Lymphocytes # 1.2 10*3/uL (1.4-4.0); Lymphocytes % 11.6 % (21.3-54.2); Mean Corpuscular Hemoglobin 29 PG (27-34); Mean Corpuscular Volume 89.1 FL (87-102); Mean Platelet Volume 11.1 FL (9.6-12.0); Monocytes # 0.9 10*3/uL (0.11-0.8); Monocytes % 9.4 % (1.7-12.7); Neutrophils # 7.5 10*3/uL (1.4-7.4); Neutrophils % 75.3 % (38.7-73.9); Platelet Count 217 T/CUMM (130-400); Red Cell Distribution Width 15.2 % (9.3-17.3)
[2018-09-07 04:57] LABS: Calcium 8.7 MG/DL (8.5-10.1); Osmolality,Calculated 285.1 MOS/KG (273-304)
[2018-09-07] MEDS: oxyCODONE/ACETAMINOPHEN 5-325 MG TABLET PO PRN ×2 (06:24→12:10)
[2018-09-07] MEDS: LEVOTHYROXINE 25 MCG TABLET PO SCH (06:24)
[2018-09-07] MEDS: FENOFIBRATE 160 MG TABLET PO SCH (08:48)
[2018-09-07] MEDS: CHOLECALCIFEROL 1,000 UNIT TABLET PO SCH (08:48)
[2018-09-07] MEDS: DIGOXIN 0.125 MG TABLET PO SCH (08:48)
[2018-09-07] MEDS: ALLOPURINOL 100 MG TABLET PO SCH (08:49)
[2018-09-07] MEDS: FERROUS SULFATE 325 MG TABLET PO SCH (08:49)
[2018-09-07] MEDS: CETIRIZINE 10 MG TABLET PO SCH (08:49)
[2018-09-07] MEDS: MEGESTROL 40 MG TABLET PO SCH (08:50)
[2018-09-07] MEDS: PANTOPRAZOLE 40 MG TABLET PO SCH (08:50)
[2018-09-07] MEDS: ASPIRIN EC 81 MG TABLET PO SCH (08:50)
[2018-09-07] MEDS: DOCUSATE SODIUM 100 MG CAPSULE PO SCH (08:50)
[2018-09-07] MEDS: CARVEDILOL 12.5 MG TABLET PO SCH (08:50)
[2018-09-07 12:07] VITALS: BP 119/61
[2018-09-07 13:50] LABS: Apearance,Urine Slightly Hazy (Clear); Bilirubin,Urine Negative (Negative); Blood, Urine Large mg/dL (Negative); Glucose,Urine (UA) Negative (Negative); Ketones,Urine Negative (Negative); Mucus,Urine Occasional /LPF (Occasional); Nitrite,Urine Negative (Negative); Protein,Urine Negative; RBC,Urine 1738 /HPF (0-4); Urine Color Yellow (Yellow); Urine Specific Gravity 1.016 (1.001-1.035); Urine Urobilinogen < 2.0 EU/DL (0.2-1.0)
== END 2018-09-07 12:57 | disposition home or self-care (01) | DRG 220 ==
LOC: N.2W 08-23 09:01 → N.TELEN 08-23 13:48 → N.CVR 08-24 07:03 → N.TELES 08-25 11:25

== ENCOUNTER 2018-11-15 15:48 | Inpatient (IN) ==
[2018-11-15] MEDS ORDERED: ASPIRIN 325 MG TABLET PO STA (16:53)
[2018-11-15] MEDS ORDERED: methylPREDNISolone SOD SUC 125 MG/2 ML VIAL IV STA (16:53)
[2018-11-15] MEDS ORDERED: NITROGLYCERIN 2% OINT 1 INCH/GM PACK TOP STA (16:53)
[2018-11-15] MEDS ORDERED: MORPHINE 4 MG/1 ML VIAL IV STA (16:53)
[2018-11-15] MEDS ORDERED: ALBUTEROL/IPRATROPIUM 3 ML NEB RESP TX STA (16:53)
[2018-11-15] MEDS ORDERED: ONDANSETRON 4 MG/2 ML VIAL IV STA (16:53)
[2018-11-15] MEDS ORDERED: FUROSEMIDE 100 MG/10 ML VIAL IV STA (16:53)
[2018-11-15 17:33] LABS: Basophils % 0.3 % (0.0-0.8); Eosinophils # 0.4 10*3/uL (0.0-0.87); Eosinophils % 4.8 % (0.00-10.9); Hematocrit 30.4 VOL% (35.7-47.0); Hemoglobin 9.4 GM/DL (12.0-16.0); Immature Granulocytes % 0.8 %; Immature Granulocytes Absolute 0.06 #; Lymphocytes # 1.4 10*3/uL (1.4-4.0); Lymphocytes % 18.8 % (21.3-54.2); Mean Corpuscular HGB Conc 30.9 GM/DL (32-36); Mean Corpuscular Hemoglobin 28 PG (27-34); Mean Corpuscular Volume 89.9 FL (87-102); Monocytes # 0.6 10*3/uL (0.11-0.8); Monocytes % 7.6 % (1.7-12.7); Neutrophils # 5.1 10*3/uL (1.4-7.4); Neutrophils % 67.7 % (38.7-73.9); Platelet Count 86 T/CUMM (130-400); Red Blood Count 3.38 MC/CUMM (3.8-5.5); Red Cell Distribution Width 17.3 % (9.3-17.3); White Blood Count 7.5 T/CUMM (4-12)
[2018-11-15 17:41] LABS: PT Patient Result 11.2 SECS
[2018-11-15 17:52] LABS: Albumin 3.4 G/DL (3.4-5.0); Bilirubin,Total 0.4 MG/DL (0.2-1.0); Calcium 8.7 MG/DL (8.5-10.1); Osmolality,Calculated 289.8 MOS/KG (273-304); Potassium 4.2 MMOL/L (3.5-5.1); Total Protein 7.9 G/DL (6.4-8.3)
[2018-11-15 18:17] LABS: Elliptocytes Few; Hypochromasia 1+; Microcytosis 1+; Platelet Estimate Decreased; Polychromasia Few; Spherocytes 1+
[2018-11-15 19:20] LABS: Apearance,Urine Slightly Hazy (Clear); Bacteria,Urine Moderate /HPF (Few); Bilirubin,Urine Negative (Negative); Blood, Urine Large mg/dL (Negative); Glucose,Urine (UA) Negative (Negative); Ketones,Urine Negative (Negative); Nitrite,Urine Negative (Negative); Protein,Urine 100 MG/DL; RBC,Urine 706 /HPF (0-4); Urine Color Yellow (Yellow); Urine Urobilinogen < 2.0 EU/DL (0.2-1.0); WBC,Urine 7 /HPF (0-6)
[2018-11-15] MEDS ORDERED: ACETAMINOPHEN 325 MG TABLET PO PRN (20:03)
[2018-11-15] MEDS ORDERED: ONDANSETRON 4 MG/2 ML VIAL IV PRN (20:03)
[2018-11-15] MEDS ORDERED: ZALEPLON 5 MG CAPSULE PO PRN (20:03)
[2018-11-15] MEDS ORDERED: tiZANidine 4 MG TABLET PO PRN (20:07)
[2018-11-15] MEDS ORDERED: TOBRAMYCIN/DEXAMETHASONE OPH OINT 3.5 GM TUBE BOTH EYES PRN (20:07)
[2018-11-15] MEDS ORDERED: NON-FORMULARY MEDICATION (Chlorpheniramine/Phenylephrine [Ed-A-Hist 4 Mg-10 Mg Tablet] 1 E PO PRN (20:07)
[2018-11-15] MEDS ORDERED: ENOXAPARIN 30 MG/0.3 ML SYRINGE SUBCUT SCH (20:30)
[2018-11-15] MEDS ORDERED: ESTROGENS (CONJ) VAG CREAM 30 GM TUBE VAG SCH (20:30)
[2018-11-15] MEDS ORDERED: CARVEDILOL 3.125 MG TABLET PO SCH (21:00)
[2018-11-15] MEDS: CARVEDILOL 25 MG TABLET PO SCH (22:58)
[2018-11-15 23:02] LABS: Troponin I 0.036 NG/ML (0.00-0.045)
[2018-11-15] MEDS: traMADol 50 MG TABLET PO PRN (23:03)
[2018-11-15] MEDS: clonazePAM 0.5 MG TABLET PO PRN (23:07)
[2018-11-15] MEDS ORDERED: INFLUENZA VIRUS VACCINE 0.5 ML SYRINGE IM ONE (23:34)
[2018-11-16] MEDS: FUROSEMIDE 40 MG/4 ML VIAL IV SCH ×3 (00:17→12:34)
[2018-11-16 04:06] LABS: Basophils % 0.2 % (0.0-0.8); Hematocrit 25.7 VOL% (35.7-47.0); Hemoglobin 7.9 GM/DL (12.0-16.0); Immature Granulocytes % 1.5 %; Immature Granulocytes Absolute 0.08 #; Lymphocytes # 0.6 10*3/uL (1.4-4.0); Lymphocytes % 10.2 % (21.3-54.2); Mean Corpuscular HGB Conc 30.7 GM/DL (32-36); Mean Corpuscular Hemoglobin 27 PG (27-34); Mean Corpuscular Volume 88.3 FL (87-102); Mean Platelet Volume 10.9 FL (9.6-12.0); Monocytes # 0.1 10*3/uL (0.11-0.8); Monocytes % 1.3 % (1.7-12.7); Neutrophils # 4.8 10*3/uL (1.4-7.4); Neutrophils % 86.8 % (38.7-73.9); Platelet Count 107 T/CUMM (130-400); Red Blood Count 2.91 MC/CUMM (3.8-5.5); Red Cell Distribution Width 16.8 % (9.3-17.3); White Blood Count 5.5 T/CUMM (4-12)
[2018-11-16 04:19] LABS: Calcium 8.3 MG/DL (8.5-10.1); Potassium 3.9 MMOL/L (3.5-5.1)
[2018-11-16 04:25] LABS: Troponin I 0.032 NG/ML (0.00-0.045)
[2018-11-16 04:28] LABS: Free T4 (Free Thyroxine) 1.23 NG/DL (0.76-1.46); Thyroid Stimulating Hormone 0.16 uIU/ml (0.358-3.74)
[2018-11-16] MEDS: LEVOTHYROXINE 25 MCG TABLET PO SCH (06:21)
[2018-11-16] MEDS: CHOLECALCIFEROL 1,000 UNIT TABLET PO SCH (08:39)
[2018-11-16] MEDS: CETIRIZINE 10 MG TABLET PO SCH (08:39)
[2018-11-16] MEDS: ALLOPURINOL 100 MG TABLET PO SCH (08:39)
[2018-11-16] MEDS: CARVEDILOL 25 MG TABLET PO SCH ×2 (08:39→17:29)
[2018-11-16] MEDS: MEGESTROL 40 MG TABLET PO SCH (08:39)
[2018-11-16] MEDS: ASPIRIN EC 81 MG TABLET PO SCH (08:39)
[2018-11-16] MEDS ORDERED: PANTOPRAZOLE 40 MG TABLET PO SCH (09:00)
[2018-11-16] MEDS: traMADol 50 MG TABLET PO PRN ×2 (09:57→22:12)
[2018-11-16] MEDS: PANTOPRAZOLE 40 MG TABLET PO SCH ×2 (12:33→22:08)
[2018-11-16] MEDS ORDERED: DIGOXIN 0.125 MG TABLET PO SCH (13:00)
[2018-11-16] MEDS: BUMETANIDE 1 MG/4 ML VIAL IV SCH (17:29)
[2018-11-16] MEDS: FERROUS SULFATE 325 MG TABLET PO SCH (22:08)
[2018-11-17 03:12] LABS: Basophils % 0.2 % (0.0-0.8); Eosinophils # 0.1 10*3/uL (0.0-0.87); Eosinophils % 0.8 % (0.00-10.9); Hematocrit 25.6 VOL% (35.7-47.0); Immature Granulocytes Absolute 0.11 #; Lymphocytes % 17.7 % (21.3-54.2); Mean Corpuscular HGB Conc 31.3 GM/DL (32-36); Mean Corpuscular Hemoglobin 28 PG (27-34); Mean Corpuscular Volume 89.5 FL (87-102); Mean Platelet Volume 12.3 FL (9.6-12.0); Monocytes # 1.3 10*3/uL (0.11-0.8); Monocytes % 11.3 % (1.7-12.7); Neutrophils # 7.6 10*3/uL (1.4-7.4); Platelet Count 102 T/CUMM (130-400); Red Blood Count 2.86 MC/CUMM (3.8-5.5); Red Cell Distribution Width 16.7 % (9.3-17.3)
[2018-11-17 03:29] LABS: Calcium 8.2 MG/DL (8.5-10.1); Osmolality,Calculated 286.1 MOS/KG (273-304); Potassium 3.4 MMOL/L (3.5-5.1)
[2018-11-17] MEDS: LEVOTHYROXINE 25 MCG TABLET PO SCH (06:31)
[2018-11-17] MEDS: BUMETANIDE 1 MG/4 ML VIAL IV SCH ×2 (06:31→17:11)
[2018-11-17] MEDS: ASPIRIN EC 81 MG TABLET PO SCH (09:05)
[2018-11-17] MEDS: CARVEDILOL 25 MG TABLET PO SCH ×2 (09:05→17:11)
[2018-11-17] MEDS: MEGESTROL 40 MG TABLET PO SCH (09:05)
[2018-11-17] MEDS: PANTOPRAZOLE 40 MG TABLET PO SCH ×2 (09:05→21:11)
[2018-11-17] MEDS: ALLOPURINOL 100 MG TABLET PO SCH (09:05)
[2018-11-17] MEDS: FERROUS SULFATE 325 MG TABLET PO SCH ×2 (09:05→21:11)
[2018-11-17] MEDS: CHOLECALCIFEROL 1,000 UNIT TABLET PO SCH (09:05)
[2018-11-17] MEDS ORDERED: POTASSIUM CHLORIDE 20 MEQ/15 ML UDCUP PER TUBE PRN (09:07)
[2018-11-17] MEDS: CETIRIZINE 10 MG TABLET PO SCH (09:07)
[2018-11-17] MEDS ORDERED: MAGNESIUM SULF RIDER 4 GM in PREMIX 1 EACH IV PRN (09:08)
[2018-11-17] MEDS ORDERED: MAGNESIUM SULF RIDER 2 GM in PREMIX 1 EACH IV PRN (09:08)
[2018-11-17] MEDS: POTASSIUM CHLORIDE 20 MEQ TABLET PO PRN ×3 (10:05→14:57)
[2018-11-18 05:10] LABS: Basophils # 0.1 10*3/uL (0.0-0.2); Basophils % 0.7 % (0.0-0.8); Eosinophils # 0.2 10*3/uL (0.0-0.87); Eosinophils % 3.4 % (0.00-10.9); Hematocrit 25.7 VOL% (35.7-47.0); Hemoglobin 7.8 GM/DL (12.0-16.0); Immature Granulocytes % 0.9 %; Immature Granulocytes Absolute 0.06 #; Lymphocytes # 1.9 10*3/uL (1.4-4.0); Lymphocytes % 28.7 % (21.3-54.2); Mean Corpuscular HGB Conc 30.4 GM/DL (32-36); Mean Corpuscular Hemoglobin 28 PG (27-34); Mean Corpuscular Volume 90.5 FL (87-102); Monocytes # 0.7 10*3/uL (0.11-0.8); Monocytes % 10.7 % (1.7-12.7); Neutrophils # 3.8 10*3/uL (1.4-7.4); Neutrophils % 55.6 % (38.7-73.9); Platelet Count 157 T/CUMM (130-400); Red Blood Count 2.84 MC/CUMM (3.8-5.5); White Blood Count 6.8 T/CUMM (4-12)
[2018-11-18] MEDS: LEVOTHYROXINE 25 MCG TABLET PO SCH (06:14)
[2018-11-18] MEDS: BUMETANIDE 1 MG/4 ML VIAL IV SCH (06:15)
[2018-11-18] MEDS: PANTOPRAZOLE 40 MG TABLET PO SCH (09:21)
[2018-11-18] MEDS: CARVEDILOL 25 MG TABLET PO SCH (09:21)
[2018-11-18] MEDS: FERROUS SULFATE 325 MG TABLET PO SCH (09:21)
[2018-11-18] MEDS: CETIRIZINE 10 MG TABLET PO SCH (09:21)
[2018-11-18] MEDS: ALLOPURINOL 100 MG TABLET PO SCH (09:21)
[2018-11-18] MEDS: CHOLECALCIFEROL 1,000 UNIT TABLET PO SCH (09:21)
[2018-11-18] MEDS: ASPIRIN EC 81 MG TABLET PO SCH (09:21)
[2018-11-18] MEDS: clonazePAM 0.5 MG TABLET PO PRN (09:28)
[2018-11-18] MEDS: traMADol 50 MG TABLET PO PRN (09:29)
[2018-11-18] MEDS: MEGESTROL 40 MG TABLET PO SCH (09:30)
[2018-11-18 12:09] VITALS: BP 123/74
[2018-11-18] MEDS ORDERED: IRON SUCROSE 200 MG in SODIUM CHLORIDE 0.9% 100 ML IV ONE (14:00)
== END 2018-11-18 15:47 | disposition home or self-care (01) | DRG 291 ==
LOC: N.ED 15:48 → N.EDINP 20:15 → N.TELES 21:04
PROVIDERS: ADMIT Internal Medicine; ATTEND Internal Medicine